=== PATIENT | female | born 1935 | race African-American/Black ===

== ENCOUNTER 2017-05-03 21:54 | Inpatient (IN) ==
[2017-05-03] MEDS ORDERED: methylPREDNISolone SOD SUC 125 MG/2 ML VIAL IV STA (22:13)
[2017-05-03] MEDS ORDERED: LEVOFLOXACIN INJ 750 MG in PREMIX 1 EACH IV STA (22:13)
[2017-05-03] MEDS ORDERED: SODIUM CHLORIDE 0.9% 1,000 ML IV STA (22:13)
--- NOTE | 2017-05-03 22:20 | Emergency Department Note ---
Arrival - Arrival Chief Complaint: Non-Specific Stated Complaint: clammy/ diaphoretic ED Nursing Triage Note: PT TO ROOM VIA [facility] STRETCHER. PT HAD PEG TUBE REPLACED THIS AM. PT IS DIAPHORETIC. COOL / CLAMMY. PT IS ASPHAGIC/ CONTRACTED. / DROOLING, NORMAL PER STAFF/ EMT. PT [id number] BS 217 Mode of Arrival: Stretcher Limitations: Altered Mental Status Source: Old Records Reviewed Time Seen by Provider: 05/03/17 22:13 - History of Present Illness HPI Narrative: This 82-year-old black female presents on referral from the [facility] where she presents with shallow respirations, marked diaphoresis, drooling, and cold extremities. The patient was seen here earlier in the day for change out of the feeding tube. Of note the patient is a DNR. She is unresponsive at this point in time even to noxious stimuli. Onset (ago): hour(s) (Patient presents 1 hour post onset of symptoms) Allergies/Adverse Reactions: Allergies Allergy/AdvReac Type Severity Reaction Status Date / Time No Known Allergies Allergy Verified 05/03/17 22:08 Home Medications: Home Medications Medication Instructions Recorded Confirmed Type Donepezil HCl 20 mg PEG DAILY 07/11/16 05/03/17 History Simvastatin [Zocor] 20 mg PEG DAILY 07/11/16 05/03/17 History Albuterol/Ipratropium Neb [Duoneb] 3 ml RESP TX RT Q6H PRN 02/04/17 02/19/17 History Clopidogrel [Plavix] 75 mg PEG DAILY 02/04/17 05/03/17 History Insulin NPH [HumuLIN N] 10 unit SUBCUT BID 02/04/17 05/03/17 History Insulin Regular, Human [NovoLIN R] 0 - 15 unit SUBCUT ACHS 02/04/17 05/03/17 History Lisinopril [Prinivil] 20 mg PEG DAILY 02/04/17 05/03/17 History Trazodone HCl 100 mg PEG BEDTIME 02/04/17 05/03/17 History cloNIDine 0.2 MG/24 HR PATCH 1 patch TRANSDERM TU 02/04/17 05/03/17 History [[id number]-4 Patch] Albuterol/Ipratropium Neb [Duoneb] 3 ml RESP TX RT Q6H PRN #0 02/12/17 Rx amLODIPine [Norvasc] 5 mg PO DAILY 05/03/17 05/03/17 History Review of System - Review of System ROS unobtainable: due to mental status Medical,Surgical,& Family Hx - Medical History Cardio: History of: Cerebrovascular Disease, Hypertension No history of: Aneurysm, Cardiac Dysrhythmia, Congenital Heart Disease, CHF, CAD, [place], Pacemaker, PVD, Valvular Heart Disease, Cardiovascular Problems Psychological: History of: Psychiatric Problems (Dementia) Neurology: History of: Cerebral Hemorrhage, Cerebrovascular Accident, Dementia No history of: Brain Aneurysm, Cerebral Palsy, Migraine, Multiple Sclerosis, Parkinson's Disease, Peripheral Neuropathy, Seizures, TIA, Vertigo, Neurologocal Cancer Endocrine: History of: Diabetes Mellitus (IDDM), Diabetes Mellitus (NIDDM), Dyslipidemia Gastrointestinal: History of: GERD, GI Problems (PEG tube) Other: No history of: Anesthesia Reactions - Surgical History Neurologic Surgeries: Surgical HX of: Cerebral Hemorrhage Patient denies: Brain Aneurysm, Neurologic Surgery HEENT Surgeries: Patient denies: Tonsilectomy & Adenoidectomy Abdominal Surgeries: Surgical HX of: EGD (peg placement) Reproductive Surgeries: Surgical HX of;: Genitourinary 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 HEENT: Normocephalic. No trauma. Moist mucous membranes. EOMI. PERRLA. ENT NML NECK: Supple. No adenopathy. CARDIAC: Regular. No murmurs. Heart rate 120 CHEST: Scattered expiratory vicky. No respiratory distress. O2 sat 84% ABDOMEN: Soft. Nontender. Hypoactive bowel sounds. Feeding tube left lower quadrant with good return EXTREMITIES: No trauma. no pedal edema. bilateral severe contractions of the legs.. SKIN: Diaphoretic with cold extremities NEURO: Unresponsive even to noxious stimuli. Vital Signs: Vital Signs Temperature 96.2 F L 05/03/17 21:58 Pulse Rate 125 H 05/03/17 23:45 Respiratory Rate 30 H 05/03/17 23:45 Blood Pressure 119/65 05/03/17 23:45 O2 Sat by Pulse Oximetry 99 05/03/17 23:45 Course - Reevaluation(s) Reevaluation #1: Discussed with family the situation and the terminality of her outcome eventually. They are comfortable with DNR status but want everything done short of that. - Consultations Consultation #1: Discussed with hospitalist service who will admit for further evaluation treatment Results - Labs CBC & BMP: 05/03/17 22:24 05/03/17 22:24 Labs: I have reviewed the lab and noted the elevated hematocrit - Impressions EKG sinus tachycardia at 111 with normal [place] interval and right ventricular conduction delay. Diffuse nonspecific ST changes. No acute injury pattern. - Diagnostic Findings Procedure: Chest x-ray: image reviewed by me, report reviewed by me (No acute disease), KUB x-ray: image reviewed by me, report reviewed by me (Feeding tube visualized, fecal stasis noted) Disposition Clinical Impression: Hypotension, Respiratory distress Case discussed with: patient's family Disposition: Still a Patient Condition: Guarded Time of Disposition: 00:18
--- NOTE | 2017-05-03 22:21 | EKG Report ---
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
[2017-05-03] MEDS ORDERED: ALBUTEROL 2.5 MG/3 ML NEB RESP TX SCH (22:30)
[2017-05-03] MEDS ORDERED: methylPREDNISolone SOD SUC 125 MG/2 ML VIAL ONE (22:43)
[2017-05-03] MEDS ORDERED: LEVOFLOXACIN INJ 150 ML IV ONE (22:43)
[2017-05-03 23:08] LABS: Basophils % 0.3 % (0.0-0.8); Eosinophils % 0.3 % (0.00-10.9); Hemoglobin 18.6 GM/DL (12.0-16.0); Immature Granulocytes % 0.5 %; Immature Granulocytes Absolute 0.02 #; Lymphocytes # 0.7 10*3/uL (1.4-4.0); Lymphocytes % 18.5 % (21.3-54.2); Mean Corpuscular HGB Conc 30.2 GM/DL (32-36); Mean Corpuscular Hemoglobin 28 PG (27-34); Mean Corpuscular Volume 93.8 FL (87-102); Mean Platelet Volume 13.2 FL (9.6-12.0); Monocytes # 0.3 10*3/uL (0.11-0.8); Monocytes % 7.3 % (1.7-12.7); Neutrophils # 2.7 10*3/uL (1.4-7.4); Neutrophils % 73.1 % (38.7-73.9); Platelet Count 185 T/CUMM (130-400); Red Blood Count 6.56 MC/CUMM (3.8-5.5); Red Cell Distribution Width 17.9 % (9.3-17.3); White Blood Count 3.7 T/CUMM (4-12)
[2017-05-03 23:17] LABS: Hematocrit 61.5 VOL% (35.7-47.0)
[2017-05-03 23:29] LABS: Alanine Aminotransferase 26 U/L (13-56); Alkaline Phosphatase 96 U/L (45-117); Aspartate Amino Transferase 29 U/L (0-37); Blood Urea Nitrogen 36 MG/DL (7-18); Calcium 11.2 MG/DL (8.5-10.1); Glucose 235 MG/DL (74-106); Osmolality,Calculated 294.4 MOS/KG (273-304); Potassium 4.6 MMOL/L (3.5-5.1); Sodium 140 MMOL/L (136-145); Total Protein 8.4 G/DL (6.4-8.3); Troponin I Only 0.021 NG/ML (0.00-0.045)
[2017-05-03 23:50] LABS: Band Neutrophils 49 % (0-10); Lymphocytes 20 % (20-55); Platelet Estimate Adequate; Segmented Neutrophils 29 % (50-85); Total Cells Counted 100
[2017-05-04] MEDS ORDERED: ALBUTEROL/IPRATROPIUM 3 ML NEB RESP TX PRN (00:51)
[2017-05-04] MEDS ORDERED: DEXTROSE 50% 25 GM/50 ML VIAL IV PRN (00:57)
[2017-05-04] MEDS ORDERED: GLUCAGON 1 MG VIAL IM PRN (00:57)
--- NOTE | 2017-05-04 01:04 | Hospitalist History & Physical ---
Assessment and Plan (1) Severe sepsis Status: Acute Assessment and plan: Patient presented to the hospital with hypothermia blood pressure was okay but did have some riders at the care home. She was tachycardic with tachypnea and acute renal failure. Patient was given a dose of levofloxacin in the emergency room I will put her on Zosyn 2.25 g IV every 8 hours and Zyvox 600 mg IV every 12 hours. She is DNR should be able to go on the general medical floor with his antibiotics. Resume home medications with appropriate modifications. Current Visit: Yes (2) Hypothermia Status: Acute Assessment and plan: This has recoup some. Continue to observe Current Visit: Yes (3) UTI (urinary tract infection) Status: Acute Assessment and plan: Check urine microbiology and urinalysis as have been sent already. Patient is to have a Arechiga catheter for evacuation of the bladder. Good strong suspicion that she is returning and may be less which is guarding her abdomen. May have also developed his acute renal failure from retentive unit to the urinary bladder. I will be giving her some IV fluids would like to come control and monitoring of urine output. This reason she will have a Arechiga catheter. Current Visit: Yes (4) Pneumonia Status: Acute Assessment and plan: There is blunting of the left costophrenic angle and loss of the left cardiac border suggesting lingular infiltrate. She had a PEG tube dislodgment at the care home for long time there is a possibility there was aspiration. Patient is bedbound could easily aspirated to the left lung depending on how positioning in bed. Antibiotics directed should cover these too. Current Visit: No (5) Dehydration Status: Acute Assessment and plan: Give the normal saline at 100 mL an hour. Monitor urine output. BMP and magnesium in the morning. Current Visit: Yes (6) Diabetes mellitus Status: Chronic Assessment and plan: Patient was using Coumadin again at home. We will give intermediate sliding scale here. Her oral intake is very diminished. Will attempt to resume Glucerna at 30 mL/h and get dietitian consultation to assist with recommendation caloric needs. Accu-Cheks every 6 hours. Check A1c and lipid panel in the morning. Current Visit: No Qualifiers: Diabetes mellitus type: type 2 History of Present Illness Chief complaint: Chills and fever History of present illness: Ms. Tyson is a 82 year old female brought to the emergency room on referral from the care home where she presents with shallow respirations market diaphoresis drooling and cold extremities. Patient was seen here area in today for change out of feeding tube that had dislodged. This was done and very after returning to the care home patient started having shaking riders. presented to the emergency room with a blood pressure 119/65 heart rate of 125 temperature 96.2degrees Fahrenheit and O2 saturation of 99%.she is a DNRand family acknowledges it at the bedside. Home Medications Medication Instructions Recorded Confirmed Type Donepezil HCl 20 mg PEG DAILY 07/11/16 05/04/17 History Simvastatin [Zocor] 20 mg PEG DAILY 07/11/16 05/04/17 History Clopidogrel [Plavix] 75 mg PEG DAILY 02/04/17 05/04/17 History Insulin NPH [HumuLIN N] 10 unit SUBCUT BID 02/04/17 05/04/17 History Insulin Regular, Human [NovoLIN R] 0 - 15 unit SUBCUT ACHS 02/04/17 05/04/17 History Lisinopril [Prinivil] 20 mg PEG DAILY 02/04/17 05/04/17 History Trazodone HCl 100 mg PEG BEDTIME 02/04/17 05/04/17 History cloNIDine 0.2 MG/24 HR PATCH 1 patch TRANSDERM TU 02/04/17 05/04/17 History [Amispsqb-OTL-5 Patch] Albuterol/Ipratropium Neb [Duoneb] 3 ml RESP TX RT Q6H PRN #0 02/12/17 Rx amLODIPine [Norvasc] 5 mg PO DAILY 05/03/17 05/04/17 History Cetirizine HCl [Cetirizine Tab] 10 mg PO DAILY 05/04/17 05/04/17 History Allergies Allergy/AdvReac Type Severity Reaction Status Date / Time No Known Allergies Allergy Verified 05/03/17 22:08 Medical,Surgical,& Family Hx - Medical History Cardio: History of: Cerebrovascular Disease, Hypertension No history of: Aneurysm, Cardiac Dysrhythmia, Congenital Heart Disease, CHF, CAD, [place], Pacemaker, PVD, Valvular Heart Disease, Cardiovascular Problems Psychological: History of: Psychiatric Problems (Dementia) Neurology: History of: Cerebral Hemorrhage, Cerebrovascular Accident, Dementia No history of: Brain Aneurysm, Cerebral Palsy, Migraine, Multiple Sclerosis, Parkinson's Disease, Peripheral Neuropathy, Seizures, TIA, Vertigo, Neurologocal Cancer Endocrine: History of: Diabetes Mellitus (IDDM), Diabetes Mellitus (NIDDM), Dyslipidemia Gastrointestinal: History of: GERD, GI Problems (PEG tube) Other: No history of: Anesthesia Reactions - Surgical History Neurologic Surgeries: Surgical HX of: Cerebral Hemorrhage Patient denies: Brain Aneurysm, Neurologic Surgery HEENT Surgeries: Patient denies: Tonsilectomy & Adenoidectomy Abdominal Surgeries: Surgical HX of: EGD (peg placement) Reproductive Surgeries: Surgical HX of;: Genitourinary 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 Patient cannot offer any information because of severe dementia and prior strokes. However information is obtained from the family members at the bedside relating to what is in the subjective border of information. She obviously had a dislodged PEG tube at the care home that is possibly that patient aspirated 2. She has abdominal discomfort and there does appear to be urinary tract infection discussion with Dr. Bonilla the emergency room physician who saw the patient. Exam - Constitutional Vitals: Period Temp Pulse Resp BP Sys/Yousif Pulse Ox Last 24 Hr 96.2 F-96.2 F 97-125 20-40 88-120/54-90 84-99 General appearance: normal weight - Head Head exam: Present: normocephalic, atraumatic - Eye Eye exam: Present: other (Patient is incommunicado cannot follow instruction) Pupils: Present: SANDI - ENT ENT exam: Present: other (Continuous drooling suggesting dyscontrol of upper respiratory secretions) - Respiratory Respiratory exam: Present: other (Bilateral rhonchi) - Cardiovascular Cardiovascular exam: Present: tachycardia, other (Sinus control) - GI/Abdominal GI/Abdominal exam: Present: other (Do not augment patient is guarding there is presence of infrequent bowel sounds) - Extremities Exam Extremities exam: Present: other (Cervical strokes with significant loss of muscle bulk especially lower extremities) - Neurological Exam Neurological exam: Present: other (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
[2017-05-04 02:18] LABS: INR 1.1; PT Patient Result 11.2 SECS; Partial Thromboplastin Time 25.7 SECS (0-40)
--- NOTE | 2017-05-04 02:51 | Event Note ---
Patient presented to Psychiatric after transfer from the emergency room with unresponsiveness now. We will cannot obtain a blood pressure. The family was talked in the emergency room and they the informed me that they do not want resuscitation. Over the now through the son was at the bedside stated that they would like to have everything done except for compression on the his CPR. This is an patient been transferred to the medical ICU will start will start Levophed on how. Hopefully can get a bit IV. Currently on IV fluids change with normal saline. Replace Zyvox with vancomycin. She will also receive 240 mg single dose of gentamicin overnight.
[2017-05-04] MEDS ORDERED: LINEZOLID INJ 600 MG in PREMIX 1 EACH IV SCH (03:00)
[2017-05-04] MEDS ORDERED: VANCOMYCIN INJ 1,000 MG in SODIUM CHLORIDE 0.9% 250 ML IV ONE ×2 (03:00→03:30)
[2017-05-04] MEDS ORDERED: GENTAMICIN INJ 240 MG in SODIUM CHLORIDE 0.9% 100 ML IV STA (03:14)
--- NOTE | 2017-05-04 03:52 | Event Note ---
Putting in the right inguinal central line: After transferring her to the intensive care unit, patient was put in supine position in bed. The right inguinal place was prepped. Face trial drawn. We ended up in the artery. We withdrew the line and put some pressure in the inguinal area. Tried again nothing happened." Femoral possible strong. Patient was applied to the groin again. By the time the process of about his blood pressure was 105/77. Patient was receiving normal saline IV change rate. At this point is to continue IV fluids at 100 mL/h after the first needle is gone in. Content systolic pressures above 65 mmHg. Biopsy should be started immediately with gentamicin first 240 mg 1 is going to receive Zosyn 2.25 g IV every 8 and subsequently vancomycin 1 g every 24 hours patient we will be followed by hospital medicine. Diagnosis severe sepsis associated with both pneumonia and urinary tract infection. Patient is DNR but family would like a medical management to continue.
[2017-05-04] MEDS: PIPERACILLIN/TAZOBACTAM 3,375 MG in SODIUM CHLORIDE 0.9% 100 ML IV SCH ×2 (04:12→16:27)
[2017-05-04] MEDS: DEXTROSE 5% NACL 0.9% 1,000 ML IV SCH ×3 (05:11→19:10)
--- NOTE | 2017-05-04 06:27 | XRay Report ---
Portable chest Date: 05/03/2017 Clinical history: Shortness of breath Comparison: 02/06/2017 Technique: Portable AP sitting chest Findings: Stable cardiomegaly with uncoiling of the aorta. Progressive atelectasis/infiltration at the lung bases. Smaller pleural effusion. Stable mediastinum and osseous structures. Impression: Progressive bibasilar atelectasis/infiltration with small left pleural effusion. PROCEDURE INTERPRETED AT [facility] DEPARTMENT OF RADIOLOGY Final Report Signed by: Dr. Carolyne Lynch
--- NOTE | 2017-05-04 06:30 | XRay Report ---
Exam: XR KUB Date: 05/03/2017 10:16 PM Comparison: None Indication: Tube placement Technique:[Portable supine abdomen] Findings: Nonobstructed bowel gas pattern. Scattered fecal material in the colon. PEG tube projecting in the left abdomen. Nonspecific calcifications in the abdomen and pelvis. Minimal levoscoliosis with osteopenia and degenerative changes. Impression: PEG tube projecting in the left abdomen. It is difficult to determine the exact location without contrast. Nonspecific calcifications in the abdomen and pelvis. Nonobstructed bowel gas pattern with increased fecal material. PROCEDURE INTERPRETED AT [facility] DEPARTMENT OF RADIOLOGY Final Report Signed by: Dr. Carolyne Lynch
--- NOTE | 2017-05-04 07:54 | EKG Report ---
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
[2017-05-04] MEDS ORDERED: SODIUM CHLORIDE 0.9% 1,000 ML IV ONE (08:44)
[2017-05-04] MEDS ORDERED: amLODIPine 5 MG TABLET PO SCH (09:00)
[2017-05-04] MEDS ORDERED: cloNIDine 0.2 MG/24 HR PATCH TRANSDERM SCH (09:00)
[2017-05-04] MEDS ORDERED: LISINOPRIL 20 MG TABLET PEG SCH (09:00)
[2017-05-04] MEDS: CLOPIDOGREL 75 MG TABLET PEG SCH (09:54)
[2017-05-04] MEDS: SIMVASTATIN 20 MG TABLET PEG SCH (09:54)
--- NOTE | 2017-05-04 10:59 | Fluoroscopy Report ---
Exam: FL feeding tube Date: 05/04/2017 12:00 AM Comparison: 05/03/2017 Indication: PEG tube placement Technique:[Portable KUB with films obtained before and after the injection of contrast. 3 films were obtained.] Findings: PEG tube projecting in the abdomen just to the right of midline on the initial film. Nasogastric tube in the stomach. 60 cc of dilute Gastrografin injected. Pooling of some of the contrast around the tube with leakage into the peritoneal cavity. No significant contrast identified in the stomach. Nonspecific calcifications in the abdomen and pelvis with degenerative changes. Impression: The PEG tube does not project in the stomach and should be repositioned. Free spillage of contrast into the peritoneal cavity as discussed with Dr. Sneed at 10:25 AM on 05/04/2017. Critical test results. PROCEDURE INTERPRETED AT [facility] DEPARTMENT OF RADIOLOGY Final Report Signed by: Dr. Carolyne Lynch
--- NOTE | 2017-05-04 11:05 | Gastrointestinal Consult Note ---
Assessment and Plan (1) PEG (percutaneous endoscopic gastrostomy) status Status: Acute Assessment and plan: 05/04-Admitted with sepsis, post PEG tube replacement on yesterday. Findings of fluroscopy of PEG not projecting into stomach, free spillage of contrast into peritoneal cavity. Tube feedings held. Plan and addendum to follow by Dr Brown. Current Visit: No History of Present Illness Chief complaint: Sepsis, PEG tube malposition History of present illness: Ms. Tyson is a 82 year old female who was admitted to the hospital overnight with reports of chills and fever. Patient is unable to provide history due to being nonverbal therefore information is obtained from nursing staff and chart review. Patient has a history of CVA on anticoagulant therapy (Plavix), dementia, diabetes, dyslipidemia, and GERD. Patient is a resident in a [facility] and she was at our facility as outpatient on yesterday to have her PEG tube replaced. PEG tube replaced and she was discharged back to the facility without any complications at that time. Last night patient was found by [facility] staff to have shaking rigors and was noted to be slightly hypothermic with a temperature of 96 and a heart rate of 125. She was brought in for further evaluation and she was found at that time to have acute renal failure and IV antibiotics were initiated. She was also found to have some progressive bibasilar atelectasis with infiltration and small left pleural effusion. Upon further evaluation patient had evaluation under fluoroscopy and was found the PEG tube not projecting in the stomach with free spillage of contrast in the peritoneal cavity. Tube feedings have been held at this time. WBCs on admission noted at 3.7. Temperature is improved at 98.1 and patient mildly tachycardic with continued tachypnea. Blood pressure noted to be improving since admission with mild hypotension. Unable to determine by [facility] records the amount of tube feedings given on yesterday after return from PEG tube replacement. Home Medications Medication Instructions Recorded Confirmed Type Donepezil HCl 20 mg PEG DAILY 07/11/16 05/04/17 History Simvastatin [Zocor] 20 mg PEG DAILY 07/11/16 05/04/17 History Clopidogrel [Plavix] 75 mg PEG DAILY 02/04/17 05/04/17 History Insulin NPH [HumuLIN N] 10 unit SUBCUT BID 02/04/17 05/04/17 History Insulin Regular, Human [NovoLIN R] 0 - 15 unit SUBCUT ACHS 02/04/17 05/04/17 History Lisinopril [Prinivil] 20 mg PEG DAILY 02/04/17 05/04/17 History Trazodone HCl 100 mg PEG BEDTIME 02/04/17 05/04/17 History cloNIDine 0.2 MG/24 HR PATCH 1 patch TRANSDERM TU 02/04/17 05/04/17 History [[id number]-6 Patch] Albuterol/Ipratropium Neb [Duoneb] 3 ml RESP TX RT Q6H PRN #0 02/12/17 Rx amLODIPine [Norvasc] 5 mg PO DAILY 05/03/17 05/04/17 History Cetirizine HCl [Cetirizine Tab] 10 mg PO DAILY 05/04/17 05/04/17 History Allergies Allergy/AdvReac Type Severity Reaction Status Date / Time No Known Allergies Allergy Verified 05/03/17 22:08 Medical,Surgical,& Family Hx - Medical History Cardio: History of: Cerebrovascular Disease, Hypertension No history of: Aneurysm, Cardiac Dysrhythmia, Congenital Heart Disease, CHF, CAD, [place], Pacemaker, PVD, Valvular Heart Disease, Cardiovascular Problems Psychological: History of: Psychiatric Problems (Dementia) Neurology: History of: Cerebral Hemorrhage, Cerebrovascular Accident, Dementia No history of: Brain Aneurysm, Cerebral Palsy, Migraine, Multiple Sclerosis, Parkinson's Disease, Peripheral Neuropathy, Seizures, TIA, Vertigo, Neurologocal Cancer Endocrine: History of: Diabetes Mellitus (IDDM), Diabetes Mellitus (NIDDM), Dyslipidemia Gastrointestinal: History of: GERD, GI Problems (PEG tube) Other: No history of: Anesthesia Reactions - Surgical History Neurologic Surgeries: Surgical HX of: Cerebral Hemorrhage Patient denies: Brain Aneurysm, Neurologic Surgery HEENT Surgeries: Patient denies: Tonsilectomy & Adenoidectomy Abdominal Surgeries: Surgical HX of: EGD (peg placement) Reproductive Surgeries: Surgical HX of;: Genitourinary 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), Hysterectomy - Family History Family History: Reports;: Family Cancer (son-colon), Family Diabetes (daughters) , Family Heart Disease (mother), Family Hypertension (all six children), Family Stroke (daugher) Denies;: Family Anesthesia Reaction - Social History Smoking Status: Unknown if ever smoked Frequency of Alcohol Use: Unknown Type of Drug Use: Unknown ROS unobtainable: due to mental status Exam - Constitutional Vitals: Period Temp Pulse Resp BP Sys/Yousif Pulse Ox Last 24 Hr 93 F-98.6 F 92-125 20-40 70-120/40-90 84-99 General appearance: normal weight, no acute distress - Head Head exam: Present: normal inspection, normocephalic - Eye Eye exam: Present: other (lids and conjunctiva unremarkable). Absent: scleral icterus - ENT ENT exam: Present: normal exam, normal oropharynx - Neck Neck exam: Present: normal inspection - Respiratory Respiratory exam: Present: clear to auscultation bilaterally. Absent: rales, rhonchi, wheezes - Cardiovascular Cardiovascular exam: Present: regular rate and rhythm. Absent: diastolic murmur , JVD, systolic murmur - GI/Abdominal GI/Abdominal exam: Present: normal bowel sounds, soft. Absent: ascites, distended, mass, organomegaly, tenderness - Extremities Exam Extremities exam: Present: normal inspection, full ROM - Back Exam Back exam: Present: normal inspection - Neurological Exam Neurological exam: Present: alert, altered - Psychiatric Psychiatric exam: Present: normal affect, normal mood - Skin Skin exam: Present: normal color, warm, dry Results - Labs CBC & BMP: 05/03/17 22:24 05/03/17 22:24 Lab Results: I have reviewed the past 24 hour labs - Diagnostic Findings Procedure: Abdominal x-ray: report reviewed by me, X-ray: report reviewed by me (amanda)
--- NOTE | 2017-05-04 11:52 | ECHO Report ---
Ann Tyson 05/04/2017 Exam Date: 09:02 Referring Physician: Eugenia Oscar Technologist: ESPERANZA Age: 82 Ht (in): 65 Wt (lb): 150 FExam Location: [facility] Gender: Echo [id number]: sinus tachycardia, Hx. CVA, HTN, diIndications:abetes, dehydration, severe sepsis, hypothermia, UTI, pneumonia BP: 101 / 68 HR: 98 sinus tachycardiaRhythm: Technically difficult studyTechnical Quality: IMPRESSIONS Technically difficult study Normal chamber sizes, although LV appears to be underfilled and hyperdynamic 2+ concentric LVH At least normal LV systolic function with ejection fraction estimated 50-70% Aortic sclerosis without stenosis Probable 1+ tricuspid regurgitation with RVSP 20 mmHg plus RAP MEASUREMENTS (Male / Female) Normal Values 2D ECHO LV Diastolic Diameter PLAX 3.2 cm 4.2 - 5.9 / 3.9 - 5.3 cm LV Systolic Diameter PLAX 2.7 cm LV Fractional Shortening PLAX 15.2 % IVS Diastolic Thickness 1.4 cm 0.6 - 1.0 / 0.6 - 0.9 cm LVPW Diastolic Thickness 1.4 cm 0.6 - 1.0 / 0.6 - 0.9 cm RV Internal Dim ED PLAX 2.3 cm Aortic Root Diameter 2.6 cm LA Systolic Diameter LX 2.7 cm 3.0 - 4.0 / 2.7 - 3.8 cm DOPPLER TR Peak Velocity 224.0 cm/s TR Peak Gradient 20.1 mmHg FINDINGS Left Ventricle Moderately increased septal wall thickness. Moderately increased posterior wall thickness. Moderate concentric left ventricular hypertrophy with diastolic dysfunction. Left ventricular ejection fraction is estimated at Right Ventricle Normal right ventricular size. Right Atrium Normal right atrial size. Left Atrium Normal left atrial size. Mitral Valve Mild mitral valve sclerosis. Aortic Valve Mild aortic valve sclerosis. Tricuspid Valve Morphologically normal tricuspid valve. [id number] tricuspid valve regurgitation. Tricuspid regurgitation velocities suggest a PAP of 30 mmHg. Pulmonic Valve Pulmonic valve not well visualized. Pericardium Trivial pericardial effusion. Aorta Normal size aortic root and proximal ascending aorta. Mathew Alcala (Electronically Signed) 04 May 2017 Final Date: 11:50
--- NOTE | 2017-05-04 11:54 | General Surgery Consult Note ---
Assessment and Plan (1) Severe sepsis Status: Acute Assessment and plan: Impression: Probable gastric perforation Plan: Patient is likely septic from abdominal source. Plan for exploratory laparotomy. I discussed the procedure has performed with the patient's daughter over the telephone. Risk of the procedure including bleeding, infection, damage to surrounding structures, need for further surgery were all discussed in detail and she gives her permission to proceed. Daughter understands we will place a DNR status on hold during the operation. Current Visit: Yes History of Present Illness Chief complaint: Sepsis History of present illness: Ms. Tyson is a 82 year old female underwent PEG tube replacement yesterday and returned with sepsis. She had an acute abdomen. I have been consulted to help with this. The patient has a standing DNR status. She is fdc patient who required the PEG tube for feeding. Contrast study shows the tube out of position with contrast leaking freely into the abdominal cavity. Home Medications Medication Instructions Recorded Confirmed Type Donepezil HCl 20 mg PEG DAILY 07/11/16 05/04/17 History Simvastatin [Zocor] 20 mg PEG DAILY 07/11/16 05/04/17 History Clopidogrel [Plavix] 75 mg PEG DAILY 02/04/17 05/04/17 History Insulin NPH [HumuLIN N] 10 unit SUBCUT BID 02/04/17 05/04/17 History Insulin Regular, Human [NovoLIN R] 0 - 15 unit SUBCUT ACHS 02/04/17 05/04/17 History Lisinopril [Prinivil] 20 mg PEG DAILY 02/04/17 05/04/17 History Trazodone HCl 100 mg PEG BEDTIME 02/04/17 05/04/17 History cloNIDine 0.2 MG/24 HR PATCH 1 patch TRANSDERM TU 02/04/17 05/04/17 History [Apnkmoya-YIU-4 Patch] Albuterol/Ipratropium Neb [Duoneb] 3 ml RESP TX RT Q6H PRN #0 02/12/17 Rx amLODIPine [Norvasc] 5 mg PO DAILY 05/03/17 05/04/17 History Cetirizine HCl [Cetirizine Tab] 10 mg PO DAILY 05/04/17 05/04/17 History Allergies Allergy/AdvReac Type Severity Reaction Status Date / Time No Known Allergies Allergy Verified 05/03/17 22:08 Medical,Surgical,& Family Hx - Medical History Cardio: History of: Cerebrovascular Disease, Hypertension No history of: Aneurysm, Cardiac Dysrhythmia, Congenital Heart Disease, CHF, CAD, ID, Pacemaker, PVD, Valvular Heart Disease, Cardiovascular Problems Psychological: History of: Psychiatric Problems (Dementia) Neurology: History of: Cerebral Hemorrhage, Cerebrovascular Accident, Dementia No history of: Brain Aneurysm, Cerebral Palsy, Migraine, Multiple Sclerosis, Parkinson's Disease, Peripheral Neuropathy, Seizures, TIA, Vertigo, Neurologocal Cancer Endocrine: History of: Diabetes Mellitus (IDDM), Diabetes Mellitus (NIDDM), Dyslipidemia Gastrointestinal: History of: GERD, GI Problems (PEG tube) Other: No history of: Anesthesia Reactions - Surgical History Neurologic Surgeries: Surgical HX of: Cerebral Hemorrhage Patient denies: Brain Aneurysm, Neurologic Surgery HEENT Surgeries: Patient denies: Tonsilectomy & Adenoidectomy Abdominal Surgeries: Surgical HX of: EGD (peg placement) Reproductive Surgeries: Surgical HX of;: Genitourinary 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), Hysterectomy - Family History Family History: Reports;: Family Cancer (son-colon), Family Diabetes (daughters) , Family Heart Disease (mother), Family Hypertension (all six children), Family Stroke (daugher) Denies;: Family Anesthesia Reaction - Social History Smoking Status: Unknown if ever smoked Frequency of Alcohol Use: Unknown Type of Drug Use: Unknown ROS unobtainable: due to mental status Exam - Constitutional Vitals: Period Temp Pulse Resp BP Sys/Yousif Pulse Ox Last 24 Hr 93 F-98.6 F 92-125 20-40 70-120/40-90 84-99 General appearance: no acute distress - Cardiovascular Cardiovascular exam: Present: tachycardia - GI/Abdominal GI/Abdominal exam: Present: firm (Abdomen is firm and she appears to be very tender globally with peritonitis.) - Neurological Exam Neurological exam: Present: alert Results - Labs CBC & BMP: 05/03/17 22:24 05/03/17 22:24 Lab Results: I have reviewed the past 24 hour labs
[2017-05-04] MEDS ORDERED: CALCIUM CHLORIDE 1,000 MG/10 ML VIAL IV ONE (11:58)
[2017-05-04] MEDS ORDERED: ROCURONIUM 100 MG/10 ML VIAL IV ONE (11:58)
[2017-05-04] MEDS ORDERED: EPINEPHrine 1 MG/10 ML SYRINGE ONE (11:58)
[2017-05-04] MEDS ORDERED: ETOMIDATE 20 MG/10 ML VIAL IV ONE (11:58)
[2017-05-04] MEDS ORDERED: PHENYLEPHRINE 50 MG/5 ML VIAL ONE (11:58)
[2017-05-04] MEDS ORDERED: LIDOCAINE 2% 5 ML VIAL ONE (11:58)
[2017-05-04] MEDS ORDERED: PHENYLEPHRINE 1 MG/10 ML SYRINGE IV ONE (11:58)
--- NOTE | 2017-05-04 12:54 | Hospitalist Progress Note ---
Assessment and Plan (1) Acute abdomen Status: Acute Assessment and plan: 1)acute abdomen after PEG reinsertion- under fluoro, contrast extravasated out of stomach. Dr Watts to explore at surgery now. 2)sepsis- on Zosyn and Vanc and a single dose of gent. She received volume on admission and has not required pressors. She is breathing on her own. UOP slowed but on IVF. reasses after surgery. She had some pyuria and mild infiltrates on CXR also, antibiotics geared to cover infection at those sites too. She had some dark vomitus this morning also. Consider potential for aspiration. Repeat CXR in am. Labs in am. 3)hypothermia- improved after admission 4)DM- Use SSI prn. 5)HTN- will hold antiHTN meds today. Current Visit: Yes (2) Pneumonia Status: Acute Current Visit: No (3) Atrial flutter Status: Acute Current Visit: No (4) Dementia Status: Chronic Current Visit: No (5) Severe sepsis Status: Acute Current Visit: Yes (6) UTI (urinary tract infection) Status: Acute Current Visit: Yes Hospitalist: Subjective Interval history: Ms Watters was admitted overnight with sepsis after a PEG tube replacement (a chronic PEG came out at the [place], and Dr Brown replaced it yesterday). She returned to [facility] but then came back with sepsis. She is on Zosyn and vanc. This morning her abdomen was firm and tender and with no bowel sounds. The focus of sepsis was not established and I was concerned it could have arisen from the new PEG tube. I discussed best test with Dr Lynch and also Dr Brown. She had a KUB after contrast through the PEG and Dr Lynch called me to say it was extravasated outside the stomach. I called Dr Watts to consult and he has now taken her to the OR. Dr Brown will also see her. In addition I talked to her daughter and granddaughter to explain the situation. She is DNR as she has been at the retirement. Exam - Constitutional Vitals: Period Temp Pulse Resp BP Sys/Yousif Pulse Ox Last 24 Hr 93 F-98.6 F 92-125 20-40 70-120/40-90 84-99 General appearance: mild distress, under weight - Eye Eye exam: Present: EOMI. Absent: scleral icterus - Respiratory Respiratory exam: Present: rales (at bases). Absent: rhonchi, wheezes - Cardiovascular Cardiovascular exam: Present: regular rate and rhythm - GI/Abdominal GI/Abdominal exam: Present: firm, hypoactive bowel sounds, tenderness - Extremities Exam Extremities exam: Absent: edema - Neurological Exam Neurological exam: Present: other (her baseline function is not established, but I don't think she talks at baseline. She lives at the [place]. She is not talking but she does open eyes to voice. ) - Skin Skin exam: Present: warm, dry Results - Labs CBC & BMP: 05/03/17 22:24 05/03/17 22:24 Lab Results: I have reviewed the past 24 hour labs
[2017-05-04 14:10] LABS: Amorphous Crystals,Urine Occasional /HPF (Few); Apearance,Urine CLOUDY (Clear); Bilirubin,Urine Negative (Negative); Blood, Urine Moderate mg/dL (Negative); Glucose,Urine (UA) 50 mg/dL (Negative); Ketones,Urine Negative (Negative); Mucus,Urine Occasional /LPF (Occasional); Nitrite,Urine Negative (Negative); Protein,Urine 100 MG/DL; Squamous Epithelial Cell,Urine Occasional /HPF (0-10); Urine Specific Gravity 1.026 (1.001-1.035); Urine Urobilinogen < 2.0 EU/DL (0.2-1.0); WBC,Urine 6 /HPF (0-6)
[2017-05-04 14:11] LABS: Urine Color Yellow (Yellow)
[2017-05-04] MEDS ORDERED: MIDAZOLAM 2 MG/2 ML VIAL ONE ×2 (14:13→14:14)
[2017-05-04] MEDS ORDERED: SEVOFLURANE 1 UNIT/15 MINUTE INH ONE (14:13)
[2017-05-04] MEDS ORDERED: SODIUM CHLORIDE 0.9% 200 ML IV ONE (14:15)
[2017-05-04] MEDS ORDERED: fentaNYL 100 MCG/2 ML VIAL ONE (14:15)
[2017-05-04] MEDS ORDERED: LACTATED RINGERS 2,000 ML IV ONE (14:15)
[2017-05-04] MEDS ORDERED: SODIUM CHLORIDE 0.9% 250 ML IV ONE (14:15)
[2017-05-04 14:19] LABS: ABG Base Excess -12.3 MMOL/L (-2.5-2.5); ABG HCO3 14.9 MMOL/L (20-26); ABG Oxygen Saturation 95.6 % (95-100); ABG PCO2 31.5 MM HG (35-48); ABG PH 7.255 (7.35-7.45); ABG PO2 84.7 MM HG (80-95); ABG TCO2 12.6 MMOL/L (23-27)
[2017-05-04 14:22] LABS: Basophils % 0.2 % (0.0-0.8); Hematocrit 37.2 VOL% (35.7-47.0); Hemoglobin 12.1 GM/DL (12.0-16.0); Immature Granulocytes % 1.2 %; Immature Granulocytes Absolute 0.06 #; Lymphocytes # 0.6 10*3/uL (1.4-4.0); Lymphocytes % 11.8 % (21.3-54.2); Mean Corpuscular HGB Conc 32.5 GM/DL (32-36); Mean Corpuscular Hemoglobin 29 PG (27-34); Mean Corpuscular Volume 90.1 FL (87-102); Mean Platelet Volume 13.4 FL (9.6-12.0); Monocytes # 0.4 10*3/uL (0.11-0.8); Monocytes % 7.3 % (1.7-12.7); NRBC # 0.03 10*3/uL; Neutrophils % 79.5 % (38.7-73.9); Platelet Count 112 T/CUMM (130-400); Red Blood Count 4.13 MC/CUMM (3.8-5.5); Red Cell Distribution Width 16.5 % (9.3-17.3); White Blood Count 5.1 T/CUMM (4-12)
--- NOTE | 2017-05-04 14:27 | XRay Report ---
Portable chest Date: 05/04/2017 Clinical history: Intubation Comparison: 05/03/2017 Technique: Portable AP sitting chest Findings: The heart remains enlarged with uncoiling of the aorta. The endotracheal tube is in satisfactory position above the level of the robbie. Nasogastric tube in satisfactory position in the stomach. Progressive parenchymal findings at the lung bases with small pleural effusions. Osteopenia with degenerative changes. Impression: The endotracheal tube and nasogastric tube are in satisfactory position. Progressive bibasilar atelectasis/infiltration with small pleural effusions. PROCEDURE INTERPRETED AT [facility] DEPARTMENT OF RADIOLOGY Final Report Signed by: Dr. Carolyne Lynch
[2017-05-04 14:49] LABS: Band Neutrophils 15 % (0-10); Lymphocytes 24 % (20-55); Metamyelocytes 4 %; Platelet Estimate Decreased; Segmented Neutrophils 51 % (50-85); Total Cells Counted 100
[2017-05-04 14:54] LABS: Calcium 8.3 MG/DL (8.5-10.1); Osmolality,Calculated 311.4 MOS/KG (273-304); Potassium 4.5 MMOL/L (3.5-5.1)
[2017-05-04] MEDS: NOREPINEPHRINE 8 MG in SODIUM CHLORIDE 0.9% 242 ML IV SCH (15:02)
--- NOTE | 2017-05-04 15:10 | Operative Note ---
Date of procedure: 05/04/17 Pre-op diagnosis: Peritonitis, gastric perforation Post-op diagnosis: same Procedure: Procedure performed: Ex lap with partial gastrectomy Procedure in detail: After informed consent was obtained by the patient's daughter, the patient was taken to the operative suite. Her NG tube was placed to suction and an art line was started. Upon induction of anesthesia she began to vomit and contents were noted coming up through the ET tube. These were suctioned. The patient then became hypotensive. Pressors were given. She then stabilized. The abdomen was prepped and draped in usual sterile fashion. Upper midline laparotomy incision was made after procedural pause and dissection carried down through the soft tissue. The fascia was opened and the abdominal cavity was entered. There was a lot of tube feeds throughout the entire abdominal cavity which were suctioned. The G-tube site on the inside of the abdomen was examined and there was a hole where the stomach was stuck to the anterior abdominal wall with the tube coming out of it. The tube was removed. I then extended the incision slightly inferior and incorporated the G- tube tract and divided it away from the fascia left it in place with the stomach. I then transected the antrum using a DANIELLE stapling device with a blue load removing the portion of stomach containing the G-tube tract and perforation. Staple line was complete and the lumen remained widely patent. The abdomen was then thoroughly irrigated and suctioned. The irrigant remained clear. There was excellent hemostasis. NG tube confirmed in the stomach. The midline fascia was reapproximated with #1 running looped PDS. The wound was irrigated and suctioned. Incision closed with sakina. Sterile dressings applied. The patient was left intubated and taken back to the ICU in critical condition. Anesthesia: GETA Surgeon / Physician: Dayne Watts Estimated blood loss: other (Less than 10 cc) Specimens: other (Portion of stomach) Condition: critical Disposition: ICU Results - Labs CBC & BMP: 05/04/17 14:10 05/03/17 22:24 Discharge Plan - Discharge Medications No Action Donepezil HCl 20 mg PEG DAILY Simvastatin [Zocor] 20 mg PEG DAILY Insulin NPH [HumuLIN N] 10 unit SUBCUT BID Clopidogrel [Plavix] 75 mg PEG DAILY cloNIDine 0.2 MG/24 HR PATCH [Qpuzjsmh-KVE-3 Patch] 1 patch TRANSDERM TU Trazodone HCl 100 mg PEG BEDTIME Albuterol/Ipratropium Neb [Duoneb] 3 ml RESP TX RT Q6H PRN #0 PRN Reason: Shortness Of Breath/Wheezing Cetirizine HCl [Cetirizine Tab] 10 mg PO DAILY Lisinopril [Prinivil] 20 mg PEG DAILY Insulin Regular, Human [NovoLIN R] 0 - 15 unit SUBCUT ACHS amLODIPine [Norvasc] 5 mg PO DAILY - Follow Up or Referral - Forms/Instructions
[2017-05-04] MEDS ORDERED: LACTATED RINGERS 1,000 ML IV ONE (16:03)
--- NOTE | 2017-05-04 16:57 | Pulmonology Consult Note ---
Assessment and Plan (1) Respiratory failure following trauma and surgery Status: Acute Assessment and plan: Patient is on the ventilator following laparotomy. She had vomiting and may well have aspirated. She had a her PEG tube draining feeding solution into the peritoneum. It is been removed and this is been placed under drainage. ABG show metabolic acidosis. Will step up mechanical ventilation a little. She is getting some bicarb. Her prognosis is poor. Current Visit: Yes (2) Severe sepsis Status: Acute Assessment and plan: Broad-spectrum antibiotics. Fluid resuscitation. Blood pressure stable at present. She still has some metabolic acidosis. creatinine is risen to 2.0 Current Visit: Yes (3) Acute abdomen Status: Acute Assessment and plan: Status post laparotomy. PEG tube had dislodged from the stomach Current Visit: Yes (4) Dementia Status: Chronic Assessment and plan: Patient had underlying dementia and previous stroke. Family will make a decision in a day or 2 as far as how long to support her. Current Visit: No History of Present Illness Chief complaint: Gastric perforation History of present illness: Ms. Tyson is a 82 year old female who came from a senior care. She had evidence of sepsis air in her abdomen. She was taken to surgery and found to have a PEG tube that had dislodged from the stomach with pink feedings in the peritoneum. Partial gastric resection was done. She is presently on the ventilator. She had previously been a DNR. That was revoked for her surgery. She had a previous stroke hypertension dementia cerebral hemorrhage diabetes gastroesophageal reflux disease. She has had neurologic surgery for cerebral hemorrhage. Home Medications Medication Instructions Recorded Confirmed Type Donepezil HCl 20 mg PEG DAILY 07/11/16 05/04/17 History Simvastatin [Zocor] 20 mg PEG DAILY 07/11/16 05/04/17 History Clopidogrel [Plavix] 75 mg PEG DAILY 02/04/17 05/04/17 History Insulin NPH [HumuLIN N] 10 unit SUBCUT BID 02/04/17 05/04/17 History Insulin Regular, Human [NovoLIN R] 0 - 15 unit SUBCUT ACHS 02/04/17 05/04/17 History Lisinopril [Prinivil] 20 mg PEG DAILY 02/04/17 05/04/17 History Trazodone HCl 100 mg PEG BEDTIME 02/04/17 05/04/17 History cloNIDine 0.2 MG/24 HR PATCH 1 patch TRANSDERM TU 02/04/17 05/04/17 History [Xtpbsmug-FPO-6 Patch] Albuterol/Ipratropium Neb [Duoneb] 3 ml RESP TX RT Q6H PRN #0 02/12/17 Rx amLODIPine [Norvasc] 5 mg PO DAILY 05/03/17 05/04/17 History Cetirizine HCl [Cetirizine Tab] 10 mg PO DAILY 05/04/17 05/04/17 History Allergies Allergy/AdvReac Type Severity Reaction Status Date / Time No Known Allergies Allergy Verified 05/03/17 22:08 ROS unobtainable: due to endotracheal tube Exam (Pulmonay) H&P - Constitutional Vitals: Period Temp Pulse Resp BP Sys/Yousif Pulse Ox Last 24 Hr 93 F-98.6 F 92-125 8-40 70-120/40-90 84-99 Exam: Vital signs are normal. Eyes are prominent pupils small and she has arcus senilis. Orotracheal tube in place. She has an NG tube in place. Neck is supple no bruits. Chest reveals some scattered rhonchi. Heart normal rate rhythm no murmurs. Abdomen soft somewhat distended. No bowel sounds. Bandage over midline abdomen. Extremities no clubbing cyanosis or edema. Medical,Surgical,& Family Hx - Medical History Cardio: History of: Cerebrovascular Disease, Hypertension No history of: Aneurysm, Cardiac Dysrhythmia, Congenital Heart Disease, CHF, CAD, NM, Pacemaker, PVD, Valvular Heart Disease, Cardiovascular Problems Psychological: History of: Psychiatric Problems (Dementia) Neurology: History of: Cerebral Hemorrhage, Cerebrovascular Accident, Dementia No history of: Brain Aneurysm, Cerebral Palsy, Migraine, Multiple Sclerosis, Parkinson's Disease, Peripheral Neuropathy, Seizures, TIA, Vertigo, Neurologocal Cancer Endocrine: History of: Diabetes Mellitus (IDDM), Diabetes Mellitus (NIDDM), Dyslipidemia Gastrointestinal: History of: GERD, GI Problems (PEG tube) Other: No history of: Anesthesia Reactions - Surgical History Neurologic Surgeries: Surgical HX of: Cerebral Hemorrhage Patient denies: Brain Aneurysm, Neurologic Surgery HEENT Surgeries: Patient denies: Tonsilectomy & Adenoidectomy Abdominal Surgeries: Surgical HX of: EGD (peg placement) Reproductive Surgeries: Surgical HX of;: Genitourinary 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 Right diaphragm slightly elevated. Patchy infiltrates bilateral.)
--- NOTE | 2017-05-04 17:57 | Event Note ---
pt is now postop ex lap w partial gastrectomy due to perforation and peritonitis by dr muhammad. pt vomited upon induction of anesthesia, she became hypotensive and pressors were started. she also had tube feeds in her peritoneum. pt actually seems to be doing ok. she will open her eyes. she is off pressors and just received a bolus of fluid. her VSS are stable. will cont to monitor. dr jackson from pulmonary has also seen pt. appreciate the consultants help. discussed w dr day.
[2017-05-04] MEDS: INSULIN LISPRO 100 UNIT/ML SUBCUT SCH (18:38)
[2017-05-05] MEDS: PIPERACILLIN/TAZOBACTAM 3,375 MG in SODIUM CHLORIDE 0.9% 100 ML IV SCH ×3 (00:28→20:22)
[2017-05-05] MEDS: INSULIN LISPRO 100 UNIT/ML SUBCUT SCH ×5 (00:28→23:19)
[2017-05-05] MEDS: NOREPINEPHRINE 8 MG in SODIUM CHLORIDE 0.9% 242 ML IV SCH ×2 (02:23→04:39)
[2017-05-05 03:52] LABS: ABG Base Excess -11.1 MMOL/L (-2.5-2.5); ABG HCO3 15.7 MMOL/L (20-26); ABG PCO2 22.5 MM HG (35-48); ABG PH 7.362 (7.35-7.45); ABG TCO2 11.4 MMOL/L (23-27)
[2017-05-05 03:55] LABS: Basophils % 0.2 % (0.0-0.8); Hematocrit 38.2 VOL% (35.7-47.0); Hemoglobin 12.5 GM/DL (12.0-16.0); Immature Granulocytes % 1.1 %; Lymphocytes # 0.6 10*3/uL (1.4-4.0); Lymphocytes % 6.7 % (21.3-54.2); Mean Corpuscular HGB Conc 32.7 GM/DL (32-36); Mean Corpuscular Hemoglobin 29 PG (27-34); Mean Corpuscular Volume 88.6 FL (87-102); Mean Platelet Volume 13.1 FL (9.6-12.0); Monocytes # 0.5 10*3/uL (0.11-0.8); Monocytes % 5.6 % (1.7-12.7); Neutrophils # 7.8 10*3/uL (1.4-7.4); Neutrophils % 86.4 % (38.7-73.9); Platelet Count 117 T/CUMM (130-400); Red Blood Count 4.31 MC/CUMM (3.8-5.5); Red Cell Distribution Width 16.6 % (9.3-17.3); White Blood Count 9.1 T/CUMM (4-12)
[2017-05-05 04:12] LABS: INR 1.6; PT Patient Result 17.3 SECS
[2017-05-05 04:15] LABS: Albumin 2.2 G/DL (3.4-5.0); Bilirubin,Total 1.5 MG/DL (0.2-1.0); Calcium 8.3 MG/DL (8.5-10.1); Magnesium 1.9 MG/DL (1.8-2.4); Osmolality,Calculated 311.4 MOS/KG (273-304); Potassium 5.4 MMOL/L (3.5-5.1); Total Protein 4.4 G/DL (6.4-8.3)
[2017-05-05 04:24] LABS: Anisocytosis 1+
[2017-05-05 04:25] LABS: Platelet Estimate Adequate
[2017-05-05] MEDS: DEXTROSE 5% NACL 0.9% 1,000 ML IV SCH ×2 (05:16→18:58)
[2017-05-05] MEDS: HYDROmorphone 2 MG/1 ML VIAL IM PRN ×3 (05:42→21:11)
[2017-05-05] MEDS ORDERED: LACTATED RINGERS 1,000 ML IV ONE (06:01)
--- NOTE | 2017-05-05 06:34 | XRay Report ---
Portable chest Date: 05/05/2017 Clinical history: Ventilator Comparison: 05/04/2017 Technique: Portable AP sitting chest Findings: Stable cardiomegaly and supportive devices. Progressive diffuse parenchymal findings in both mid to lower lung zones with minimally larger pleural effusions. Stable mediastinum and osseous structures. Impression: Progressive bibasilar atelectasis/infiltration/edema with minimally larger small bilateral pleural effusions. The supportive devices remain in satisfactory position. PROCEDURE INTERPRETED AT [facility] DEPARTMENT OF RADIOLOGY Final Report Signed by: Dr. Carolyne Lynch
--- NOTE | 2017-05-05 08:19 | Pulmonology Progress Note ---
Pulmonary - PN: Subj Interval history: Patient is sedated on the ventilator and has no new complaints. Urine output has been low. She has required fluid boluses. ABGs acceptable. We are hyperventilating her to have correct the metabolic acidosis. Exam (Progress Note) - Constitutional Vitals: Period Temp Pulse Resp BP Sys/Yousif Pulse Ox Last 24 Hr 96.2 F-97.7 F 68-117 8-38 81-130/47-78 95-100 Exam: Patient not responsive vital signs normal. Pupils reactive eyes prominent. Arcus senilis. Orotracheal tube in place. Neck supple no bruits. Chest reveals a few basilar rhonchi. Heart rapid rate normal rhythm. Abdomen soft bandaged no bowel sounds. Extremities no clubbing cyanosis edema. Results - Labs CBC & BMP: 05/05/17 03:45 05/05/17 03:45 Lab Results: I have reviewed the past 24 hour labs - Diagnostic Findings Procedure: Chest x-ray: image reviewed by me (Bibasilar interstitial infiltrates. ET tube may be a little low. We will pulled back 1-2 cm.) Assessment and Plan (1) Respiratory failure following trauma and surgery Status: Acute Assessment and plan: Patient is on the ventilator following laparotomy. She had vomiting and may well have aspirated. She had a her PEG tube draining feeding solution into the peritoneum. It is been removed and this is been placed under drainage. ABG show metabolic acidosis. Will step up mechanical ventilation a little. She is getting some bicarb. Her prognosis is poor. 05/05/2017 ABGs okay except for metabolic acidosis. This will need to be corrected before she can be extubated. Low urine output. Getting fluid challenges. Current Visit: Yes (2) Severe sepsis Status: Acute Assessment and plan: Broad-spectrum antibiotics. Fluid resuscitation. Blood pressure stable at present. She still has some metabolic acidosis. creatinine has risen to 2.0 05/05/2017 blood pressure looks a little better. Creatinine up to 2.6. Current Visit: Yes (3) Acute abdomen Status: Acute Assessment and plan: Status post laparotomy. PEG tube had dislodged from the stomach Current Visit: Yes (4) Dementia Status: Chronic Assessment and plan: Patient had underlying dementia and previous stroke. Family will make a decision in a day or 2 as far as how long to support her. 05/05/2017 family relates that she does not interact usually. She will just look around and move a little. That is what she is doing now. Current Visit: No (5) Acute kidney injury Status: Acute Assessment and plan: Creatinine is rising and urine output following. Agree with IV fluids. Current Visit: Yes
[2017-05-05] MEDS: DEXTROSE 5% NACL 0.45% 1,000 ML IV SCH ×2 (08:24→17:13)
[2017-05-05] MEDS ORDERED: SODIUM POLYSTYRENE SULFATE 15 GM/60 ML BOTTLE RECTAL ONE (08:30)
[2017-05-05] MEDS: CLOPIDOGREL 75 MG TABLET PEG SCH (08:41)
[2017-05-05] MEDS: SIMVASTATIN 20 MG TABLET PEG SCH (08:41)
[2017-05-05] MEDS: PANTOPRAZOLE 40 MG VIAL IV SCH (08:41)
--- NOTE | 2017-05-05 10:22 | Anesthesia Post-Op ---
Anesthesia Post OP - Post Ansesthetic Evaluation Patient seen in post op: Yes Resp: other (vent) CV: other (levophed infusion) Mental: other (unresposive (no change from preop)) Temp: within normal limits [id number]: within normal limits Nausea and Vomiting: within normal limits Pain: within normal limits
--- NOTE | 2017-05-05 10:35 | Gastrointestinal Progress Note ---
Assessment and Plan (1) PEG (percutaneous endoscopic gastrostomy) status Status: Acute Assessment and plan: 05/05-findings noted as below. Postop day 2. Continue IV antibiotics. Continue to monitor at present time. Plan an addendum to follow Dr. Brown. 05/04-Admitted with sepsis, post PEG tube replacement on yesterday. Findings of fluroscopy of PEG not projecting into stomach, free spillage of contrast into peritoneal cavity. Tube feedings held. Plan and addendum to follow by Dr Brown. Current Visit: No Gastroenterology - PN: Subj Interval history: CC: Peritonitis Patient is seen, on ventilator, without sedation. She will open her eyes to stimuli however does not follow commands but this is close to patient's baseline prior to admission. She is noted on yesterday afternoon to undergo exploratory laparotomy with partial gastrectomy due to perforation and peritonitis. She is noted just prior to receiving her anesthesia. Patient began vomiting and became hypotensive in which pressors were started. She has done well since surgery impresses are now off. She is hyperkalemic today with potassium 5.4. BMS has been placed in retention Kayexalate enemas have been started. She is also noted to have a mild elevation in her LFTs. Creatinine up at 2.6. Abdomen is soft, no bowel sounds noted. Small amount of gastric drainage noted from NG. ROS: No acute distress noted Exam (Progress Note) - Constitutional Vitals: Period Temp Pulse Resp BP Sys/Yousif Pulse Ox Last 24 Hr 96.2 F-97.7 F 68-117 8-38 81-154/47-78 95-100 - Other Additional findings: General appearance: normal weight, no acute distress - Head Head exam: Present: normal inspection, normocephalic - Eye Eye exam: Present: other (lids and conjunctiva unremarkable). Absent: scleral icterus - ENT ENT exam: Present: normal exam, normal oropharynx - Neck Neck exam: Present: normal inspection - Respiratory Respiratory exam: Present: clear to auscultation bilaterally. Absent: rales, rhonchi, wheezes - Cardiovascular Cardiovascular exam: Present: regular rate and rhythm. Absent: diastolic murmur , JVD, systolic murmur - GI/Abdominal GI/Abdominal exam: Present: normal bowel sounds, soft. Absent: ascites, distended, mass, organomegaly, tenderness - Extremities Exam Extremities exam: Present: normal inspection, full ROM - Back Exam Back exam: Present: normal inspection - Neurological Exam Neurological exam: Present: alert, altered - Psychiatric Psychiatric exam: Present: normal affect, normal mood - Skin Skin exam: Present: normal color, warm, dry Results - Labs CBC & BMP: 05/05/17 03:45 05/05/17 03:45 Lab Results: I have reviewed the past 24 hour labs
--- NOTE | 2017-05-05 11:19 | Hospitalist Progress Note ---
Assessment and Plan (1) Acute abdomen Status: Acute Assessment and plan: 1)post op day 1 after gastrectomy to repair perforated stomach- NG to suction. 2)sepsis- HD stable, on vanc and zosyn. GPC in blood. Pyuria on admission but UCx negative so far. 3)acute respiratory failure-aspirated at intubation in OR when she vomited. on antibiotics, vent per pulmonary. Doing CPAP trials. 4)DM- SSI. add lantus 10U daily 5)HTN- holding meds. 6)SKYLAR- due to sepsis. on IVF, follow creatinine 7)hyperkalemia- kayexalate enema and repeat level. 8)metabolic acidosis- continue IVF. hyperventilating. bolused several times last night for poor UOP. 9)dementia- at her baseline now. 10)PPX- start lovenox. on plavix as home med. 11)nutrition- start TPN. Current Visit: Yes (2) Pneumonia Status: Acute Current Visit: No (3) Atrial flutter Status: Acute Current Visit: No (4) Dementia Status: Chronic Current Visit: No (5) Severe sepsis Status: Acute Current Visit: Yes (6) UTI (urinary tract infection) Status: Acute Current Visit: Yes Hospitalist: Subjective Interval history: Ms Tyson is about the same. She is stable on vent, good BP without pressors. One Bcx with GPC- she is on pharmacy dosed vanc as well as zosyn. UOP down and creatinine up- I have increased her IVF rate and changed to D5half normal for her sodium. Exam - Constitutional Vitals: Period Temp Pulse Resp BP Sys/Yousif Pulse Ox Last 24 Hr 96.2 F-97.7 F 68-117 8-38 81-154/47-78 95-100 General appearance: normal weight, no acute distress (sedated) - Respiratory Respiratory exam: Present: rales (at posterior bases). Absent: rhonchi, wheezes - Cardiovascular Cardiovascular exam: Present: regular rate and rhythm - GI/Abdominal GI/Abdominal exam: Present: hypoactive bowel sounds - Extremities Exam Extremities exam: Absent: edema - Skin Skin exam: Present: warm, dry Results - Labs CBC & BMP: 05/05/17 03:45 05/05/17 03:45 Lab Results: I have reviewed the past 24 hour labs
--- NOTE | 2017-05-05 12:19 | Event Note ---
Patient is an 82-year-old female postop day #1 status post exploratory laparotomy with partial gastrectomy for gastric perforation. She is currently intubated and sedated and requiring vasopressors for blood pressure management with low urine output approximately 15 cc/h. Patient received aggressive IV hydration with minimal turnaround. She remains on IV antibiotics vancomycin and Zosyn. NG tube to intermittent low wall suction 100 cc of output. Patient is DNR. Objective: VS: Blood pressure 107/58 with Levophed support; tachycardic 108; Tachypneic 22- 26 General: Intubated - ET and NG in place Abdomen: Surgical dressing is with minimal dry drainage and intact. Abdomen slightly distended with hypoactive bowel sounds. CBC with WBC 9.1, hemoglobin 12.5, hematocrit 38.2, platelets 117 CMP sodium 147, potassium 5.4, BUN 45, creatinine 2.6, calcium 8.3, bilirubin 1.5, AST 53, ALT is 24, alk phos 46 Assessment and plan Patient is postop day 1 status post exploratory laparotomy with partial gastrectomy for gastric perforation. PPI daily Continue IV antibiotics Continue NG tube; agree with TPN for nutritional support Patient with low urine output for refractory to aggressive IV hydration; will discuss further volume expansion with Dr. Watts
[2017-05-05] MEDS: ENOXAPARIN 30 MG/0.3 ML SYRINGE SUBCUT SCH (12:42)
[2017-05-05] MEDS: INSULIN GLARGINE 100 UNIT/ML SUBCUT SCH (12:43)
[2017-05-05] MEDS ORDERED: SODIUM CHLORIDE 0.9% 1,000 ML IV ONE (14:42)
[2017-05-05] MEDS: FAT EMULSION 20% 250 ML IV SCH (14:55)
[2017-05-05] MEDS ORDERED: [UNRECOGNIZED DRUG - OTHER] IV SCH (17:00)
[2017-05-05] MEDS ORDERED: TRACE ELEMENTS IV SCH (17:00)
[2017-05-05] MEDS ORDERED: MULTIVITAMIN IV SCH (17:00)
[2017-05-05] MEDS ORDERED: AMINO ACIDS IV SCH (17:00)
[2017-05-05] MEDS ORDERED: DEXTROSE 10% 1,000 ML IV PRN (17:00)
--- NOTE | 2017-05-05 18:18 | Pathology Report from [facility] ---
[facility] [place] : [id number] PATIENT NAME : Ann Wallis ORDERING DR : Dayne Watts MD CLINICAL HX: Exploratory lap sepsis POST-OP DX: Same SPECIMEN INFO: Stomach tissue GROSS DESCRIPTION: The specimen is received in formalin labeled with the patients name ANN WALLIS and STOMACH TISSUE consists of a fragment of brown skin and subcutaneous tissue measuring 2.0 x 1.5 x 2.5 cm. Sectioning through the tissue reveals a hemorrhagic fissure-like area which leads to an attached portion of stomach measuring 5.5 x 1.7 cm. Cut surface of the stomach tissue is pink-loyd with no masses or other lesions appreciated. Supply Cataloguer sections submitted in cassettes A and B. DIAGNOSIS FOR ANN WALLIS: SKIN & STOMACH TISSUE: Skin with superficial ulceration and dermal inflammation, hemorrhage. Benign gastric mucosa. COLLECTED DATE: 05/04/2017 [facility] REPORT DATE: 05/05/2017 ELECTRONICALLY SIGNED BY: Nathaniel Rajan III, M.D. 05/05/2017 - 13:21:16 [facility]
[2017-05-06] MEDS: DEXTROSE 5% NACL 0.45% 1,000 ML IV SCH ×3 (00:39→18:50)
[2017-05-06] MEDS: HYDROmorphone 2 MG/1 ML VIAL IM PRN ×3 (05:55→15:17)
[2017-05-06] MEDS: INSULIN LISPRO 100 UNIT/ML SUBCUT SCH ×3 (06:07→18:35)
[2017-05-06 06:50] LABS: Magnesium 1.8 MG/DL (1.8-2.4); Phosphorous 2.9 MG/DL (2.5-4.9); Prealbumin 60.7 MG/DL (20-40)
[2017-05-06] MEDS: PIPERACILLIN/TAZOBACTAM 3,375 MG in SODIUM CHLORIDE 0.9% 100 ML IV SCH ×2 (07:23→20:40)
--- NOTE | 2017-05-06 07:40 | Pulmonology Progress Note ---
Pulmonary - PN: Subj Interval history: Patient is sedated on the ventilator and has no new complaints. Urine output has been low. She has required fluid boluses. ABGs acceptable. We are hyperventilating her to have correct the metabolic acidosis. 05/06/17 sedation is being held. Patient is tolerating CPAP trials. Chest x- ray shows some basilar atelectasis unchanged from before. We will see if we can get her extubated this morning Exam (Progress Note) - Constitutional Vitals: Period Temp Pulse Resp BP Sys/Yousif Pulse Ox Last 24 Hr 97.1 F-98.7 F 97-121 12-31 91-162/45-75 91-99 Exam: Patient not responsive vital signs normal. Pupils reactive eyes prominent. Arcus senilis. Orotracheal tube in place. Neck supple no bruits. Chest reveals a few basilar rhonchi. Heart rapid rate normal rhythm. Abdomen soft bandaged no bowel sounds. Extremities no clubbing cyanosis edema. Little change from yesterday. Results - Labs CBC & BMP: 05/05/17 03:45 05/05/17 03:45 Lab Results: I have reviewed the past 24 hour labs - Diagnostic Findings Procedure: Chest x-ray: image reviewed by me (Mild basilar atelectasis. ET tube good position.) Assessment and Plan (1) Respiratory failure following trauma and surgery Status: Acute Assessment and plan: Patient is on the ventilator following laparotomy. She had vomiting and may well have aspirated. She had a her PEG tube draining feeding solution into the peritoneum. It is been removed and this is been placed under drainage. ABG show metabolic acidosis. Will step up mechanical ventilation a little. She is getting some bicarb. Her prognosis is poor. 05/05/2017 ABGs okay except for metabolic acidosis. This will need to be corrected before she can be extubated. Low urine output. Getting fluid challenges. 05/06/2017 patient did tolerate CPAP yesterday. We will try to get her extubated this morning. Mental status will not allow to check mechanics. Current Visit: Yes (2) Severe sepsis Status: Acute Assessment and plan: Broad-spectrum antibiotics. Fluid resuscitation. Blood pressure stable at present. She still has some metabolic acidosis. creatinine has risen to 2.0 05/05/2017 blood pressure looks a little better. Creatinine up to 2.6. 05/06/2017 sepsis better control. Current Visit: Yes (3) Acute abdomen Status: Acute Assessment and plan: Status post laparotomy. PEG tube had dislodged from the stomach Current Visit: Yes (4) Dementia Status: Chronic Assessment and plan: Patient had underlying dementia and previous stroke. Family will make a decision in a day or 2 as far as how long to support her. 05/05/2017 family relates that she does not interact usually. She will just look around and move a little. That is what she is doing now. 05/06/2017 pre-existing severe dementia. Current Visit: No (5) Acute kidney injury Status: Acute Assessment and plan: Creatinine is rising and urine output following. Agree with IV fluids. 05/06/2017 labs pending today. Current Visit: Yes
--- NOTE | 2017-05-06 07:52 | XRay Report ---
Portable chest Date: 05/06/2017 Clinical history: Ventilator Comparison: 05/05/2017 Technique: Portable AP sitting chest Findings: Stable cardiomegaly and supportive devices. Persistent diffuse parenchymal findings at the lung bases with small bilateral pleural effusions. Stable mediastinum and osseous structures. Impression: No significant change in the appearance on the chest when compared to the previous exam. PROCEDURE INTERPRETED AT [facility] DEPARTMENT OF RADIOLOGY Final Report Signed by: Dr. Carolyne Lynch
[2017-05-06] MEDS: INSULIN GLARGINE 100 UNIT/ML SUBCUT SCH ×2 (08:49→11:47)
[2017-05-06] MEDS: PANTOPRAZOLE 40 MG VIAL IV SCH (08:50)
[2017-05-06] MEDS: SIMVASTATIN 20 MG TABLET PEG SCH (08:50)
[2017-05-06] MEDS: CLOPIDOGREL 75 MG TABLET PEG SCH (08:50)
[2017-05-06] MEDS ORDERED: VANCOMYCIN INJ 1,000 MG in SODIUM CHLORIDE 0.9% 250 ML IV SCH (09:00)
[2017-05-06 09:30] LABS: ABG Oxygen Saturation 98.4 % (95-100); ABG PCO2 27.4 MM HG (35-48); ABG PH 7.297 (7.35-7.45); ABG TCO2 12.3 MMOL/L (23-27)
--- NOTE | 2017-05-06 10:02 | Gastrointestinal Progress Note ---
Assessment and Plan (1) PEG (percutaneous endoscopic gastrostomy) status Status: Acute Assessment and plan: 05/06-postop day 2 exploratory lap. All pressure support. Continuing weaning trials. Plan an addendum to follow Dr. Brown. 05/05-findings noted as below. Postop day 1. Continue IV antibiotics. Continue to monitor at present time. Plan an addendum to follow Dr. Brown. 05/04-Admitted with sepsis, post PEG tube replacement on yesterday. Findings of fluroscopy of PEG not projecting into stomach, free spillage of contrast into peritoneal cavity. Tube feedings held. Plan and addendum to follow by Dr Brown. Current Visit: No Gastroenterology - PN: Subj Interval history: CC: Peritonitis Patient is seen, remains on ventilator continue with CPAP trials at present time. She is postop day 2 following post exploratory laparotomy with partial gastrectomy. Her eyes are open however she does not follow commands. She is off pressor support at this time with good urine output. Abdomen is soft, quiet abdomen, dressings intact. NG tube with minimal drainage. She continues on TPN support. ROS: No acute distress noted. Exam (Progress Note) - Constitutional Vitals: Period Temp Pulse Resp BP Sys/Yousif Pulse Ox Last 24 Hr 97.1 F-98.7 F 97-121 12-31 91-162/45-75 91-99 - Other Additional findings: General appearance: normal weight, no acute distress - Head Head exam: Present: normal inspection, normocephalic - Eye Eye exam: Present: other (lids and conjunctiva unremarkable). Absent: scleral icterus - ENT ENT exam: Present: normal exam, normal oropharynx - Neck Neck exam: Present: normal inspection - Respiratory Respiratory exam: Present: clear to auscultation bilaterally. Absent: rales, rhonchi, wheezes - Cardiovascular Cardiovascular exam: Present: regular rate and rhythm. Absent: diastolic murmur , JVD, systolic murmur - GI/Abdominal GI/Abdominal exam: Present: normal bowel sounds, soft. Absent: ascites, distended, mass, organomegaly, tenderness - Extremities Exam Extremities exam: Present: normal inspection, full ROM - Back Exam Back exam: Present: normal inspection - Neurological Exam Neurological exam: Present: alert, altered - Psychiatric Psychiatric exam: Present: normal affect, normal mood - Skin Skin exam: Present: normal color, warm, dry Results - Labs CBC & BMP: 05/05/17 03:45 05/05/17 03:45 Lab Results: I have reviewed the past 24 hour labs
[2017-05-06 10:30] LABS: Calcium 7.4 MG/DL (8.5-10.1); Potassium 4.3 MMOL/L (3.5-5.1)
[2017-05-06] MEDS: ENOXAPARIN 30 MG/0.3 ML SYRINGE SUBCUT SCH (11:00)
--- NOTE | 2017-05-06 11:22 | Hospitalist Progress Note ---
Assessment and Plan (1) Acute abdomen Status: Acute Assessment and plan: 1)S/P ex lap with partial gastrectomy to repair perforation of stomach- NG to suction. No tube feeds until ok with Dr Watts. 2)sepsis- off pressors, BP high when moved, likely when she hurts more. adjust pain meds and monitor. cultures with 1/2 BCx with non MRSA GPC. stopped Vanc, continue Zosyn. Ucx negative 3)acute respiratory failure- on vent and may be extubated today 4)DM- on lantus 10 and SSI, glucoses remain in 201-295 range. increase lantus to 20U a day 5)HTN- holding meds 6)SKYLAR due to sepsis- on IVF, creatinine now 2.8- continues to rise slowly. 7)metabolic acidosis- bicarb infusion added this morning. 8)hyperkalemia- resolved 9)dementia 10)ppx-on lovenox. plavix as home med. on ppi. 11)I haven't seen her family in a couple of days. Will try to touch base with them today. Current Visit: Yes (2) Pneumonia Status: Acute Current Visit: No (3) Atrial flutter Status: Acute Current Visit: No (4) Dementia Status: Chronic Current Visit: No (5) Severe sepsis Status: Acute Current Visit: Yes (6) UTI (urinary tract infection) Status: Acute Current Visit: Yes Hospitalist: Subjective Interval history: Mrs Tyson is hemodynamically stable and doing well with CPAP but has persistent metabolic acidosis reflected on labs this morning. Exam - Constitutional Vitals: Period Temp Pulse Resp BP Sys/Yousif Pulse Ox Last 24 Hr 97.3 F-98.7 F 97-121 12-31 99-162/45-75 91-100 General appearance: normal weight - Eye Eye exam: Present: EOMI. Absent: scleral icterus Pupils: Present: SANDI - Respiratory Respiratory exam: Present: clear to auscultation bilaterally - Cardiovascular Cardiovascular exam: Present: regular rate and rhythm - GI/Abdominal GI/Abdominal exam: Present: hypoactive bowel sounds, soft - Extremities Exam Extremities exam: Present: edema (hands puffy, trace LE edema) - Neurological Exam Neurological exam: Absent: alert (sedated) - Skin Skin exam: Present: warm, dry Results - Labs CBC & BMP: 05/05/17 03:45 05/06/17 09:35 Lab Results: I have reviewed the past 24 hour labs
[2017-05-06] MEDS: SODIUM BICARB INJ 50 MEQ in DEXTROSE 5% 1,000 ML IV SCH (12:31)
[2017-05-06] MEDS: FAT EMULSION 20% 250 ML IV SCH (14:13)
--- NOTE | 2017-05-06 14:31 | Nephrology Consult Note ---
History of Present Illness Chief complaint: Increased BUN and creatinine History of present illness: Ms. Tyson is a 82 year old female who was admitted a few days ago when she presented with decreased mentation and fever. The patient is a assisted patient and is bedbound. She had been in the hospital earlier in the morning when she was admitted for a PEG tube exchange. The patient with further evaluation was found to have significant abdominal pathology and was taken to the OR for an exploratory laparotomy where she was found to have a perforated bowel. The patient had the affected area resected and is now in the ICU on the ventilator getting NG suction. We were asked see the patient for increasing creatinine. On presentation patient's creatinine was around 1.8 mg/dL her creatinine now is up to 2.8 mg/dL a few days later. Her urine output is also decreased she has had about 75 cc out over the past 12 hours. Review of the patient's previous creatinines from previous hospitalizations reveals that her creatinine has ranged from normal to a creatinine around 1.7 mg/dL in the past several months. The history is taken from the chart and nursing personnel as the patient is unable to contribute to the history. Review of systems is unable be obtained due to patient's medical condition PE: General: Chronically ill-appearing Eyes: Pupils are round and reactive, conjunctivae are clear ENT: Nose is clear, O/P reveals moist mucous membranes Neck: Supple, no thyromegaly Lymphatics: No cervical, supraclavicular or axillary adenopathy Heart: Regular rate and rhythm, no edema Lungs: Clear to auscultation anteriorly, chest expansion symmetric Abdomen: Soft, normoactive bowel sounds, no hepatomegaly Musculoskeletal: No joint erythema or effusions or joint asymmetry Skin: Normal turgor, normal hydration, no rash Neuro/Psych: Patient is sedate she does not respond does not have any purposeful voluntary movements, her eyes are open, she has no insight into her illness Home Medications Medication Instructions Recorded Confirmed Type Donepezil HCl 20 mg PEG DAILY 07/11/16 05/04/17 History Simvastatin [Zocor] 20 mg PEG DAILY 07/11/16 05/04/17 History Clopidogrel [Plavix] 75 mg PEG DAILY 02/04/17 05/04/17 History Insulin NPH [HumuLIN N] 10 unit SUBCUT BID 02/04/17 05/04/17 History Insulin Regular, Human [NovoLIN R] 0 - 15 unit SUBCUT ACHS 02/04/17 05/04/17 History Lisinopril [Prinivil] 20 mg PEG DAILY 02/04/17 05/04/17 History Trazodone HCl 100 mg PEG BEDTIME 02/04/17 05/04/17 History cloNIDine 0.2 MG/24 HR PATCH 1 patch TRANSDERM TU 02/04/17 05/04/17 History [[id number] Patch] Albuterol/Ipratropium Neb [Duoneb] 3 ml RESP TX RT Q6H PRN #0 02/12/17 Rx amLODIPine [Norvasc] 5 mg PO DAILY 05/03/17 05/04/17 History Cetirizine HCl [Cetirizine Tab] 10 mg PO DAILY 05/04/17 05/04/17 History Allergies Allergy/AdvReac Type Severity Reaction Status Date / Time No Known Allergies Allergy Verified 05/03/17 22:08 Medical,Surgical,& Family Hx - Medical History Cardio: History of: Cerebrovascular Disease, Hypertension No history of: Aneurysm, Cardiac Dysrhythmia, Congenital Heart Disease, CHF, CAD, [place], Pacemaker, PVD, Valvular Heart Disease, Cardiovascular Problems Psychological: History of: Psychiatric Problems (Dementia) Neurology: History of: Cerebral Hemorrhage, Cerebrovascular Accident, Dementia No history of: Brain Aneurysm, Cerebral Palsy, Migraine, Multiple Sclerosis, Parkinson's Disease, Peripheral Neuropathy, Seizures, TIA, Vertigo, Neurologocal Cancer Endocrine: History of: Diabetes Mellitus (IDDM), Diabetes Mellitus (NIDDM), Dyslipidemia Gastrointestinal: History of: GERD, GI Problems (PEG tube) Other: No history of: Anesthesia Reactions - Surgical History Neurologic Surgeries: Surgical HX of: Cerebral Hemorrhage Patient denies: Brain Aneurysm, Neurologic Surgery HEENT Surgeries: Patient denies: Tonsilectomy & Adenoidectomy Abdominal Surgeries: Surgical HX of: EGD (peg placement) Reproductive Surgeries: Surgical HX of;: Genitourinary 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), Hysterectomy - Family History Family History: Reports;: Family Cancer (son-colon), Family Diabetes (daughters) , Family Heart Disease (mother), Family Hypertension (all six children), Family Stroke (daugher) Denies;: Family Anesthesia Reaction - Social History Smoking Status: Unknown if ever smoked Frequency of Alcohol Use: Unknown Type of Drug Use: Unknown Exam - Vital Signs Vital signs: Period Temp Pulse Resp BP Sys/Yousif Pulse Ox Last 24 Hr 97.3 F-98.7 F 100-117 12-28 99-162/45-71 91-100 Results - Labs CBC & BMP: 05/05/17 03:45 05/06/17 09:35 Assessment and Plan (1) Acute kidney injury Status: Acute Assessment and plan: Patient likely has a ATN injury from sepsis and malperfusion. Her urine output is decreasing, I am going to add some acetate for her acidosis to her TPN. Current Visit: Yes (2) Acute abdomen Status: Acute Current Visit: Yes (3) Dehydration Status: Acute Current Visit: Yes (4) Severe sepsis Status: Acute Assessment and plan: Continue antibiotics Current Visit: Yes (5) Dementia Status: Chronic Current Visit: No (6) Diabetes mellitus Status: Chronic Current Visit: No Qualifiers: Diabetes mellitus type: type 2 (7) Hypertension Status: Chronic Current Visit: No Qualifiers: Hypertension type: essential hypertension Qualified Code(s): I10 - Essential (primary) hypertension
--- NOTE | 2017-05-06 15:01 | Event Note ---
Patient presented with sepsis. She underwent partial gastrectomy at a gastric perforation near her G-tube. She had tube feeds in the abdomen. She has off pressors. Her urine output is better. Her abdomen is soft nondistended. NG tube in place. Continue antibiotics and NG tube for now. She is on TPN. Can probably start tube feeds through the NG in a few days but would recommend waiting until the stomach has completely healed before placing another PEG tube.
--- NOTE | 2017-05-06 15:08 | Event Note ---
Patient is an 82-year-old female postop day #2 status post exploratory laparotomy with partial gastrectomy for gastric perforation. She is currently intubated and not requiring vasopressor support; low urine output slightly improved to 20-30cc/h. She remains on IV antibiotics vancomycin and Zosyn. NG tube to intermittent low wall suction Objective: VS: Blood pressure 107/58 with Levophed support; tachycardic 108; Tachypneic 22- 26 General: Intubated - ET and NG in place Abdomen: Surgical incision c/d/i. Abdomen slightly distended with hypoactive bowel sounds. Abd soft. No CBC today. BMP: creat increased 2.8 Assessment and plan Patient is postop day 2 status post exploratory laparotomy with partial gastrectomy for gastric perforation. PPI daily Continue IV antibiotics Continue NG tube; agree with TPN for nutritional support Patient with improved UO. Continue to monitor.
[2017-05-06] MEDS ORDERED: TRACE ELEMENTS IV SCH (17:00)
[2017-05-06] MEDS ORDERED: SODIUM ACETATE IV SCH (17:00)
[2017-05-06] MEDS ORDERED: MULTIVITAMIN IV SCH (17:00)
[2017-05-06] MEDS ORDERED: [UNRECOGNIZED DRUG - OTHER] IV SCH (17:00)
[2017-05-07] MEDS: INSULIN LISPRO 100 UNIT/ML SUBCUT SCH ×5 (00:20→23:11)
[2017-05-07] MEDS: HYDROmorphone 2 MG/1 ML VIAL IM PRN ×5 (00:37→23:24)
[2017-05-07 02:54] LABS: Basophils % 0.1 % (0.0-0.8); Hematocrit 28.6 VOL% (35.7-47.0); Hemoglobin 9.6 GM/DL (12.0-16.0); Immature Granulocytes % 2.7 %; Immature Granulocytes Absolute 0.24 #; Lymphocytes # 0.5 10*3/uL (1.4-4.0); Lymphocytes % 5.3 % (21.3-54.2); Mean Corpuscular HGB Conc 33.6 GM/DL (32-36); Mean Corpuscular Hemoglobin 30 PG (27-34); Mean Platelet Volume 13.1 FL (9.6-12.0); Monocytes # 0.4 10*3/uL (0.11-0.8); Monocytes % 4.1 % (1.7-12.7); NRBC # 0.05 10*3/uL; Neutrophils # 7.8 10*3/uL (1.4-7.4); Neutrophils % 87.8 % (38.7-73.9); Red Blood Count 3.25 MC/CUMM (3.8-5.5); Red Cell Distribution Width 17.1 % (9.3-17.3); White Blood Count 8.8 T/CUMM (4-12)
[2017-05-07 02:55] LABS: Platelet Count 68 T/CUMM (130-400)
[2017-05-07 03:25] LABS: Calcium 7.2 MG/DL (8.5-10.1); Osmolality,Calculated 305.3 MOS/KG (273-304); Potassium 3.8 MMOL/L (3.5-5.1)
[2017-05-07 04:34] LABS: Band Neutrophils 7 % (0-10); Eosinophils 1 % (0-10); Lymphocytes 6 % (20-55); Myelocytes 1 %; Platelet Estimate Decreased; Segmented Neutrophils 79 % (50-85)
[2017-05-07 04:36] LABS: Dohle Bodies Few
[2017-05-07 04:37] LABS: Anisocytosis 1+; Hypochromasia Slight; Microcytosis 1+; Ovalocytes 1+; Polychromasia Few
[2017-05-07 04:43] LABS: Metamyelocytes 3 %
[2017-05-07 04:44] LABS: Total Cells Counted 100
--- NOTE | 2017-05-07 07:06 | XRay Report ---
Exam: XR chest 1V portable Date: 05/07/2017 4:00 AM Indication: Follow-up ventilator respiratory failure Comparison: None Technical: AP portable Findings: Endotracheal tube nasogastric tube are present. Low volume effusions atelectatic changes are present. No pneumothorax. Lateral marginal osteophytes are present. Mild cardiac enlargement. Impression: 1. Stable appearance of the life support tubing with endotracheal tube at the aortic knob and nasogastric traverses esophagus. 2. Cardiomegaly with low volume effusions atelectatic change present bilaterally, unchanged from prior study PROCEDURE INTERPRETED AT [facility] DEPARTMENT OF RADIOLOGY Final Report Signed by: Dr. Prakash Ruelas
[2017-05-07 07:43] LABS: ABG Base Excess -9.2 MMOL/L (-2.5-2.5); ABG HCO3 17.2 MMOL/L (20-26); ABG PCO2 32.5 MM HG (35-48); ABG PH 7.307 (7.35-7.45); ABG TCO2 14.6 MMOL/L (23-27)
--- NOTE | 2017-05-07 08:42 | Pulmonology Progress Note ---
Pulmonary - PN: Subj Interval history: Patient is sedated on the ventilator and has no new complaints. Urine output has been low. She has required fluid boluses. ABGs acceptable. We are hyperventilating her to have correct the metabolic acidosis. 05/06/17 sedation is being held. Patient is tolerating CPAP trials. Chest x- ray shows some basilar atelectasis unchanged from before. We will see if we can get her extubated this morning 05/07/2017 patient's ABGs acceptable except for metabolic acidosis. Creatinine is up to 3.0. Urine output is marginal. She will not be able to do mechanics. Will check ABGs on a T-tube. If those are acceptable will go ahead with extubation today. Family does not want long-term mechanical ventilation. Exam (Progress Note) - Constitutional Vitals: Period Temp Pulse Resp BP Sys/Yousif Pulse Ox Last 24 Hr 97.1 F-97.8 F 86-107 12-21 115-158/49-79 97-100 Exam: Patient not responsive vital signs normal. Pupils reactive eyes prominent. Arcus senilis. Orotracheal tube in place. Neck supple no bruits. Chest reveals a few basilar rhonchi. Heart rapid rate normal rhythm. Abdomen soft bandaged no bowel sounds. Extremities no clubbing cyanosis edema. Again, little change from yesterday. Results - Labs CBC & BMP: 05/07/17 02:35 05/07/17 02:35 Lab Results: I have reviewed the past 24 hour labs - Diagnostic Findings Procedure: Chest x-ray: image reviewed by me (Mild bibasilar atelectasis ET tube good position.) Assessment and Plan (1) Respiratory failure following trauma and surgery Status: Acute Assessment and plan: Patient is on the ventilator following laparotomy. She had vomiting and may well have aspirated. She had a her PEG tube draining feeding solution into the peritoneum. It is been removed and this is been placed under drainage. ABG show metabolic acidosis. Will step up mechanical ventilation a little. She is getting some bicarb. Her prognosis is poor. 05/05/2017 ABGs okay except for metabolic acidosis. This will need to be corrected before she can be extubated. Low urine output. Getting fluid challenges. 05/06/2017 patient did tolerate CPAP yesterday. We will try to get her extubated this morning. Mental status will not allow to check mechanics. 05/07/2017 patient tolerating CPAP. Will do a T-tube trial and hope to extubate this morning. She is a DO NOT RESUSCITATE per previous discussion Current Visit: Yes (2) Severe sepsis Status: Acute Assessment and plan: Broad-spectrum antibiotics. Fluid resuscitation. Blood pressure stable at present. She still has some metabolic acidosis. creatinine has risen to 2.0 05/05/2017 blood pressure looks a little better. Creatinine up to 2.6. 05/06/2017 sepsis better control. 05/07/2017 this is better. However she does have acute kidney injury and metabolic acidosis. Current Visit: Yes (3) Acute abdomen Status: Acute Assessment and plan: Status post laparotomy. PEG tube had dislodged from the stomach 05/07/2017 status post laparotomy for a dislodged PEG tube with feedings in the peritoneal space. Current Visit: Yes (4) Dementia Status: Chronic Assessment and plan: Patient had underlying dementia and previous stroke. Family will make a decision in a day or 2 as far as how long to support her. 05/05/2017 family relates that she does not interact usually. She will just look around and move a little. That is what she is doing now. 05/06/2017 pre-existing severe dementia. 05/07/2017 patient has severe dementia. Current Visit: No (5) Acute kidney injury Status: Acute Assessment and plan: Creatinine is rising and urine output following. Agree with IV fluids. 05/06/2017 labs pending today. 05/07/2017 creatinine up to 3.0. She is making urine. Hopefully we will see this improve in the next couple of days. Current Visit: Yes
[2017-05-07] MEDS: SODIUM BICARB INJ 50 MEQ in DEXTROSE 5% 1,000 ML IV SCH (09:24)
[2017-05-07] MEDS: SIMVASTATIN 20 MG TABLET PEG SCH (09:25)
[2017-05-07] MEDS: CLOPIDOGREL 75 MG TABLET PEG SCH (09:25)
[2017-05-07] MEDS: PANTOPRAZOLE 40 MG VIAL IV SCH (09:25)
[2017-05-07] MEDS: INSULIN GLARGINE 100 UNIT/ML SUBCUT SCH (09:25)
[2017-05-07] MEDS: PIPERACILLIN/TAZOBACTAM 3,375 MG in SODIUM CHLORIDE 0.9% 100 ML IV SCH ×2 (09:54→19:59)
--- NOTE | 2017-05-07 10:11 | Nephrology Progress Note ---
Nephrology - PN: Subj Interval history: Patient remains intubated and sedate. Physical exam general-patient opens her eyes to mild to moderate sternal rub and her name being called, heart is regular rate and rhythm, she has swelling in her thighs but no real pitting appreciated, lungs are clear to auscultation anteriorly, abdomen is soft with positive bowel sounds Assessment/plan 1. Acute renal failure-this patient has ATN injury related to sepsis, she has been getting IV fluids her input exceeds her output by about 10 L for the past 3 days, her weights are unhelpful. At this point I think she is adequately volume resuscitated. I am going to decrease her IV fluids. 2. Metabolic acidosis-I will increase her bicarb in the D5 solution and will also increase the sodium acetate in her TPN. 3. Respiratory failure-continue vent support-pulmonary is trying to wean her as the patient's family does not desire prolonged ventilation for her 4. Dementia-this patient was poorly responsive prior to her admission and was a bedbound care home patient. 5. Sepsis-continue antibiotics Exam (PN)-Nephrology - Vital Signs Vital signs: Period Temp Pulse Resp BP Sys/Yousif Pulse Ox Last 24 Hr 97.1 F-97.8 F 86-105 12-21 115-158/49-79 97-100 - Lab 05/07/17 02:35 05/07/17 02:35 Most recent lab results ABG pH 7.307 (7.35-7.45) L 05/07/17 07:30 ABG pCO2 32.5 MM HG (35-48) L 05/07/17 07:30 ABG pO2 142.0 MM HG (80-95) H 05/07/17 07:30 ABG HCO3 17.2 MMOL/L (20-26) L 05/07/17 07:30 ABG O2 Saturation 99.0 % (95-100) 05/07/17 07:30 Calcium 7.2 MG/DL (8.5-10.1) L 05/07/17 02:35 Phosphorus 2.9 MG/DL (2.5-4.9) 05/06/17 05:56 Magnesium 1.8 MG/DL (1.8-2.4) 05/06/17 05:56 Assessment and Plan (1) Acute kidney injury Status: Acute Assessment and plan: Patient likely has a ATN injury from sepsis and malperfusion. Her urine output is decreasing, I am going to add some acetate for her acidosis to her TPN. Current Visit: Yes (2) Acute abdomen Status: Acute Current Visit: Yes (3) Dehydration Status: Acute Current Visit: Yes (4) Severe sepsis Status: Acute Assessment and plan: Continue antibiotics Current Visit: Yes (5) Dementia Status: Chronic Current Visit: No (6) Diabetes mellitus Status: Chronic Current Visit: No Qualifiers: Diabetes mellitus type: type 2 (7) Hypertension Status: Chronic Current Visit: No Qualifiers: Hypertension type: essential hypertension Qualified Code(s): I10 - Essential (primary) hypertension
--- NOTE | 2017-05-07 10:32 | Gastrointestinal Progress Note ---
Assessment and Plan (1) PEG (percutaneous endoscopic gastrostomy) status Status: Acute Assessment and plan: 05/07-Post op day 3, no changes at present time. Plan and addendum to follow by Dr Brown. 05/06-postop day 2 exploratory lap. All pressure support. Continuing weaning trials. Plan an addendum to follow Dr. Brown. 05/05-findings noted as below. Postop day 1. Continue IV antibiotics. Continue to monitor at present time. Plan an addendum to follow Dr. Brown. 05/04-Admitted with sepsis, post PEG tube replacement on yesterday. Findings of fluroscopy of PEG not projecting into stomach, free spillage of contrast into peritoneal cavity. Tube feedings held. Plan and addendum to follow by Dr Brown. Current Visit: No Gastroenterology - PN: Subj Interval history: CC: Peritonitis Patient is seen, remaining on ventilator, with eyes open but does not follow commands. She is continued on her weaning trials at this time and if ABGs are improved on T tube she is for possible extubation later today due to family does not want long-term mechanical ventilation. She is continued on TPN at this time. Creatinine is up at 3.0 today. Abdomen is soft, nontender. ROS: Denies SOB or chest pain Exam (Progress Note) - Constitutional Vitals: Period Temp Pulse Resp BP Sys/Yousif Pulse Ox Last 24 Hr 97.1 F-97.8 F 86-105 12-21 115-158/49-79 97-100 - Other Additional findings: General appearance: normal weight, no acute distress - Head Head exam: Present: normal inspection, normocephalic - Eye Eye exam: Present: other (lids and conjunctiva unremarkable). Absent: scleral icterus - ENT ENT exam: Present: normal exam, normal oropharynx - Neck Neck exam: Present: normal inspection - Respiratory Respiratory exam: Present: clear to auscultation bilaterally. Absent: rales, rhonchi, wheezes - Cardiovascular Cardiovascular exam: Present: regular rate and rhythm. Absent: diastolic murmur , JVD, systolic murmur - GI/Abdominal GI/Abdominal exam: Present: normal bowel sounds, soft. Absent: ascites, distended, mass, organomegaly, tenderness - Extremities Exam Extremities exam: Present: normal inspection, full ROM - Back Exam Back exam: Present: normal inspection - Neurological Exam Neurological exam: Present: alert, altered - Psychiatric Psychiatric exam: Present: normal affect, normal mood - Skin Skin exam: Present: normal color, warm, dry Results - Labs CBC & BMP: 05/07/17 02:35 05/07/17 02:35 Lab Results: I have reviewed the past 24 hour labs
[2017-05-07 12:02] LABS: ABG HCO3 17.2 MMOL/L (20-26); ABG PCO2 33.6 MM HG (35-48); ABG PH 7.301 (7.35-7.45); ABG TCO2 15.3 MMOL/L (23-27)
[2017-05-07] MEDS ORDERED: hydrALAZINE 20 MG/1 ML VIAL IV PRN (12:09)
--- NOTE | 2017-05-07 12:29 | Hospitalist Progress Note ---
Assessment and Plan (1) Acute abdomen Status: Acute Assessment and plan: 1)S/P ex lap with partial gastrectomy to repair perforation of stomach- NG to suction. No tube feeds until ok with Dr Ramos. 2)sepsis- off pressors, BP high when moved, likely when she hurts more. adjust pain meds and monitor. cultures with 1/2 BCx with non MRSA GPC. stopped Vanc, continue Zosyn. Ucx negative 3)acute respiratory failure- on vent and may be extubated today 4)DM- on lantus 10 and SSI, glucoses remain in 190-250 range. increase lantus to 30U a day.Will need to decrease this when TPN decreased I suspect. 5)HTN- begin norvasc, hydralazine prn. 6)SKYLAR due to sepsis- creatinine up to 3.0- has not peaked yet. Due to AtN from sepsis. IVF rate decreased. 7)metabolic acidosis- acetate increased in TPN and in fluids, recheck in am. 8)hyperkalemia- resolved 9)dementia 10)ppx-on lovenox. plavix as home med. on ppi. 11)dispo- refer to LTAC. Current Visit: Yes (2) Pneumonia Status: Acute Current Visit: No (3) Atrial flutter Status: Acute Current Visit: No (4) Dementia Status: Chronic Current Visit: No (5) Severe sepsis Status: Acute Current Visit: Yes (6) UTI (urinary tract infection) Status: Acute Current Visit: Yes Hospitalist: Subjective Interval history: Mrs Tyson remains hemodynamically stable on the vent. She is doing t-tube trial and possible will be extubated today. Per family she did not want prolonged intubation-she has been DNR. Discussed disposition with Dr Allen- she will likely need LTAC for recovery after surgery, feeding her with NGT once that is ok with Dr Ramos, etc. Exam - Constitutional Vitals: Period Temp Pulse Resp BP Sys/Yousif Pulse Ox Last 24 Hr 97.1 F-97.8 F 86-105 12-20 115-158/49-79 97-100 General appearance: normal weight, no acute distress - Eye Eye exam: Present: EOMI. Absent: scleral icterus Pupils: Present: SANDI - Respiratory Respiratory exam: Present: clear to auscultation bilaterally - Cardiovascular Cardiovascular exam: Present: regular rate and rhythm - GI/Abdominal GI/Abdominal exam: Present: hypoactive bowel sounds, soft - Extremities Exam Extremities exam: Present: edema (puffiness in hands, thighs, no pitting edema) - Neurological Exam Neurological exam: Present: other (at baseline, does not speak move. opens eyes ot voice intermittently) - Skin Skin exam: Present: warm, dry Results - Labs CBC & BMP: 05/07/17 02:35 05/07/17 02:35 Lab Results: I have reviewed the past 24 hour labs
[2017-05-07] MEDS ORDERED: INSULIN GLARGINE 100 UNIT/ML SUBCUT SCH (12:32)
[2017-05-07] MEDS: amLODIPine 10 MG TABLET PO SCH (12:42)
[2017-05-07] MEDS: ENOXAPARIN 30 MG/0.3 ML SYRINGE SUBCUT SCH (12:42)
[2017-05-07] MEDS: SODIUM BICARB INJ 150 MEQ in DEXTROSE 5% 1,000 ML IV SCH (12:42)
--- NOTE | 2017-05-07 13:08 | Event Note ---
She appears stable and is on a T-piece and about to be extubated. She is hemodynamically stable. She is now 3 days out and I think we can start to drip some low rate tube feeds in her nasogastric tube
[2017-05-07] MEDS ORDERED: NITROGLYCERIN 2% OINT 1 INCH/GM PACK TOP ONE (16:07)
[2017-05-07] MEDS ORDERED: FUROSEMIDE 40 MG/4 ML VIAL IV ONE (16:08)
[2017-05-07] MEDS ORDERED: [UNRECOGNIZED DRUG - OTHER] IV SCH (17:00)
[2017-05-07] MEDS ORDERED: DEXTROSE 10% IV SCH (17:00)
[2017-05-07] MEDS ORDERED: AMINO ACIDS 10% IV SCH (17:00)
[2017-05-07] MEDS ORDERED: MULTIVITAMIN IV SCH (17:00)
[2017-05-07] MEDS ORDERED: TRACE ELEMENTS IV SCH (17:00)
[2017-05-07] MEDS ORDERED: INSULIN REGULAR IV SCH (17:00)
[2017-05-08 05:46] LABS: Calcium 7.8 MG/DL (8.5-10.1); Osmolality,Calculated 307.3 MOS/KG (273-304); Potassium 3.1 MMOL/L (3.5-5.1)
[2017-05-08] MEDS: INSULIN LISPRO 100 UNIT/ML SUBCUT SCH ×3 (06:14→18:12)
--- NOTE | 2017-05-08 07:11 | XRay Report ---
XR chest 1V portable Indication: Extubation. Chest one view: Since yesterday, endotracheal tube has been removed. NG tube position is stable. Lungs remain hypoinflated with continued hazy obscuration of both lung bases, especially on the left. Cardiomegaly is stable. Although likely from change in position, the aortic arch appears more prominent on the current examination. A CT angiogram of the carotid arteries from 2014 was referenced showing no aneurysmal change of the arch. Impression: Increased prominence of the aortic arch likely positional. Consider repeat radiograph. Extubation. Persistent atelectasis or pneumonia of the lung bases. PROCEDURE INTERPRETED AT [facility] DEPARTMENT OF RADIOLOGY Final Report Signed by: Kyle Lamas M.D.
--- NOTE | 2017-05-08 07:54 | Nephrology Progress Note ---
Nephrology - PN: Subj Interval history: Patient was extubated on yesterday. She has continued to have good urine output. Serum creatinine is 2.8 today. Hemodynamics have been acceptable. Exam (PN)-Nephrology - Vital Signs Vital signs: Period Temp Pulse Resp BP Sys/Yousif Pulse Ox Last 24 Hr 97.2 F-98.0 F 82-115 12-21 124-194/57-104 91-100 - General Appearance General appearance: well-developed, chronically ill EENT: ATNC Neck: supple Respiratory: rales (Bilaterally) Cardiology: no edema, regular rate, regular rhythm Gastrointestinal: normoactive bowel sounds Integumentary: no rash - Lab 05/07/17 02:35 05/08/17 05:02 Most recent lab results ABG pH 7.301 (7.35-7.45) L 05/07/17 11:50 ABG pCO2 33.6 MM HG (35-48) L 05/07/17 11:50 ABG pO2 111.0 MM HG (80-95) H 05/07/17 11:50 ABG HCO3 17.2 MMOL/L (20-26) L 05/07/17 11:50 ABG O2 Saturation 98.0 % (95-100) 05/07/17 11:50 Calcium 7.8 MG/DL (8.5-10.1) L 05/08/17 05:02 Phosphorus 2.9 MG/DL (2.5-4.9) 05/06/17 05:56 Magnesium 1.8 MG/DL (1.8-2.4) 05/06/17 05:56 Assessment and Plan (1) Hypertension Status: Chronic Current Visit: No Qualifiers: Hypertension type: essential hypertension Qualified Code(s): I10 - Essential (primary) hypertension (2) Diabetes mellitus Status: Chronic Current Visit: No Qualifiers: Diabetes mellitus type: type 2 Chronic kidney disease stage: stage 3 ( moderate) (3) Acute kidney injury Status: Acute Assessment and plan: Acute on chronic kidney disease. BMP in a.m. Current Visit: Yes
[2017-05-08] MEDS ORDERED: FUROSEMIDE 40 MG/4 ML VIAL IV ONE (09:30)
[2017-05-08] MEDS ORDERED: HYDROmorphone 2 MG/1 ML VIAL IV PRN (09:30)
[2017-05-08] MEDS: CLOPIDOGREL 75 MG TABLET PEG SCH (10:36)
[2017-05-08] MEDS: PANTOPRAZOLE 40 MG VIAL IV SCH (10:37)
[2017-05-08] MEDS: amLODIPine 10 MG TABLET PO SCH (10:37)
[2017-05-08] MEDS: POTASSIUM CHLORIDE 20 MEQ TABLET PO SCH ×2 (10:37→18:12)
[2017-05-08] MEDS: SIMVASTATIN 20 MG TABLET PEG SCH (10:37)
[2017-05-08] MEDS: PIPERACILLIN/TAZOBACTAM 3,375 MG in SODIUM CHLORIDE 0.9% 100 ML IV SCH ×2 (10:38→21:03)
[2017-05-08] MEDS: INSULIN GLARGINE 100 UNIT/ML SUBCUT SCH (10:47)
--- NOTE | 2017-05-08 11:19 | Event Note ---
She is stable. She is tolerating tube feeds and is afebrile with stable vital signs. Her abdomen appears benign. We will slowly advance her tube feed rate and I agree with discontinuing her TPN and transfer to the floor.
[2017-05-08] MEDS: ENOXAPARIN 30 MG/0.3 ML SYRINGE SUBCUT SCH (12:59)
[2017-05-08] MEDS: SODIUM BICARB INJ 150 MEQ in DEXTROSE 5% 1,000 ML IV SCH (12:59)
--- NOTE | 2017-05-08 13:34 | Pulmonology Progress Note ---
Pulmonary - PN: Subj Interval history: 82-year-old female admitted for severe sepsis due to PEG tube dislodgment and resultant peritonitis. Patient required mechanical ventilation briefly and was extubated successfully yesterday. She did well overnight without acute events. She is being transferred to the floor today. She is now DNR/DNI after extubation. Exam (Progress Note) - Constitutional Vitals: Period Temp Pulse Resp BP Sys/Yousif Pulse Ox Last 24 Hr 97.3 F-98.0 F 89-115 12-21 124-194/58-96 91-100 General appearance: normal weight - Head Head exam: Present: normal inspection - Eye Eye exam: Present: EOMI - Neck Neck exam: Present: normal inspection - Respiratory Respiratory exam: Present: rales (Bibasilar) - Cardiovascular Cardiovascular exam: Present: regular rate and rhythm - GI/Abdominal GI/Abdominal exam: Present: normal bowel sounds - Extremities Exam Extremities exam: Present: edema - Neurological Exam Neurological exam: Present: altered - Skin Skin exam: Present: normal color, warm, dry Results - Labs CBC & BMP: 05/07/17 02:35 05/08/17 05:02 - Diagnostic Findings Procedure: Chest x-ray: report reviewed by me Assessment and Plan (1) Respiratory failure following trauma and surgery Status: Acute Assessment and plan: Patient now extubated and doing well. She is DNR/DNI per previous discussions. Continue to monitor respiratory status. Current Visit: Yes (2) Acute kidney injury Status: Acute Assessment and plan: Slowly improving with good urine output. Nephrology following. Current Visit: Yes (3) Severe sepsis Status: Acute Assessment and plan: Improving Current Visit: Yes (4) Acute abdomen Status: Acute Assessment and plan: Status post laparotomy for dislodged PEG tube with feedings in the peritoneal space and doing well. Current Visit: Yes
--- NOTE | 2017-05-08 14:00 | Hospitalist Progress Note ---
Assessment and Plan (1) Acute abdomen Status: Acute Assessment and plan: 1)low potassium- replace adn recheck in am. 2)resp failure- doing ok off vent, requires frequent suctioning. repeat lasix as it sounds like she may have some pulmonary edema after sepsis resuscitation. 3)sepsis- resolved. BCx with 1/2 bottles with staph haemolyticus- likely contaminant. repeat BCX today. 4)DM- I decreased lantus dose to 15- half of previous because the TPN will stop this evening. At [place] was on BID NPH with SSI. 5)HTN_ on norvasc and hydralazine. restart her clonidine also. holding MARCELO because of renal failure- might resume when creatinine at baseline. 6)SKYLAR due to sepsis- resolving slowly. monitor. 7)metabolic acidosis- improving, continue bicarb drip per renal. 8)dementia 9)ppx- on lovenox and PPI. plavix is a home med. 10)dispo- referred to LTAC. 11)DNR Current Visit: Yes (2) Pneumonia Status: Acute Current Visit: No (3) Atrial flutter Status: Acute Current Visit: No (4) Dementia Status: Chronic Current Visit: No (5) Severe sepsis Status: Acute Current Visit: Yes (6) UTI (urinary tract infection) Status: Acute Current Visit: Yes Hospitalist: Subjective Interval history: She is doing well off vent with far fewer rhonchi and requiring less frequent suctioning. She had good response to nitro paste and lasix given yesterday with good UOP and decrease in creatinine this morning. Liquid stool this morning sent for cdiff. Tube feeds started yesterday and she is tolerating so we will stop TPN, decrease lantus. Will transfer to the floor. Exam - Constitutional Vitals: Period Temp Pulse Resp BP Sys/Yousif Pulse Ox Last 24 Hr 97.3 F-98.0 F 89-115 12-21 124-194/58-96 91-100 General appearance: normal weight, no acute distress - Eye Eye exam: Present: EOMI. Absent: scleral icterus Pupils: Present: SANDI - Respiratory Respiratory exam: Present: rales, rhonchi. Absent: wheezes - Cardiovascular Cardiovascular exam: Present: regular rate and rhythm - GI/Abdominal GI/Abdominal exam: Present: normal bowel sounds, soft - Extremities Exam Extremities exam: Present: edema (much less edema today though some at knees, hands particularly.) Results - Labs CBC & BMP: 05/07/17 02:35 05/08/17 05:02 Lab Results: I have reviewed the past 24 hour labs
[2017-05-08] MEDS ORDERED: cloNIDine 0.2 MG/24 HR PATCH TRANSDERM SCH (14:30)
[2017-05-08] MEDS ORDERED: [UNRECOGNIZED DRUG - OTHER] IV SCH (17:00)
[2017-05-08] MEDS ORDERED: MULTIVITAMIN IV SCH (17:00)
[2017-05-08] MEDS ORDERED: TRACE ELEMENTS IV SCH (17:00)
[2017-05-08] MEDS ORDERED: ELECTROLYTE IV SCH (17:00)
[2017-05-08] MEDS ORDERED: POTASSIUM CHLORIDE 20 MEQ TABLET PO ONE (18:00)
[2017-05-09] MEDS: INSULIN LISPRO 100 UNIT/ML SUBCUT SCH ×5 (00:02→23:55)
[2017-05-09 07:13] LABS: Potassium 4.4 MMOL/L (3.5-5.1)
--- NOTE | 2017-05-09 09:01 | Nephrology Progress Note ---
Nephrology - PN: Subj Interval history: The patient is resting she is more alert today. Serum creatinine noted to be 3.1. Hemodynamics are stable. Exam (PN)-Nephrology - Vital Signs Vital signs: Period Temp Pulse Resp BP Sys/Yousif Pulse Ox Last 24 Hr 96.9 F-98.8 F 98-108 14-22 105-169/58-79 95-100 - General Appearance General appearance: chronically ill EENT: ATNC Neck: supple Respiratory: rales (Bilaterally) Cardiology: regular rate, regular rhythm Gastrointestinal: normoactive bowel sounds, no tenderness Integumentary: no rash - Lab 05/07/17 02:35 05/09/17 06:19 Most recent lab results ABG pH 7.301 (7.35-7.45) L 05/07/17 11:50 ABG pCO2 33.6 MM HG (35-48) L 05/07/17 11:50 ABG pO2 111.0 MM HG (80-95) H 05/07/17 11:50 ABG HCO3 17.2 MMOL/L (20-26) L 05/07/17 11:50 ABG O2 Saturation 98.0 % (95-100) 05/07/17 11:50 Calcium 8.0 MG/DL (8.5-10.1) L 05/09/17 06:19 Phosphorus 2.9 MG/DL (2.5-4.9) 05/06/17 05:56 Magnesium 1.8 MG/DL (1.8-2.4) 05/06/17 05:56 Assessment and Plan (1) Hypertension Status: Chronic Current Visit: No Qualifiers: Hypertension type: essential hypertension Qualified Code(s): I10 - Essential (primary) hypertension (2) Diabetes mellitus Status: Chronic Current Visit: No Qualifiers: Diabetes mellitus type: type 2 Chronic kidney disease stage: stage 3 ( moderate) (3) Acute kidney injury Status: Acute Assessment and plan: Acute on chronic kidney disease. BMP in a.m. Avoid nephrotoxic agents. Continue to follow. Current Visit: Yes
[2017-05-09] MEDS: amLODIPine 10 MG TABLET PO SCH (09:45)
[2017-05-09] MEDS: SIMVASTATIN 20 MG TABLET PEG SCH (09:45)
[2017-05-09] MEDS: CLOPIDOGREL 75 MG TABLET PEG SCH (09:45)
[2017-05-09] MEDS: PANTOPRAZOLE 40 MG VIAL IV SCH (09:45)
[2017-05-09] MEDS: INSULIN GLARGINE 100 UNIT/ML SUBCUT SCH (09:45)
--- NOTE | 2017-05-09 10:17 | Hospitalist Progress Note ---
Assessment and Plan - Time spent with patient Time spent with patient: Greater than 30 minutes (1) Severe sepsis Status: Acute Assessment and plan: Secondary to peritonitis. Resolved. Will continue antibiotics. Current Visit: Yes (2) Respiratory failure following trauma and surgery Status: Acute Assessment and plan: Extubated and doing well. Pulmonary is following appreciate their assistance. Current Visit: Yes (3) Acute kidney injury Status: Acute Assessment and plan: Nephrology is following. Creatinine is slowly rising. Current Visit: Yes (4) Diabetes mellitus Status: Chronic Assessment and plan: No Accu-Cheks and sliding scales insulins Current Visit: No Qualifiers: Diabetes mellitus type: type 2 Chronic kidney disease stage: stage 3 ( moderate) (5) Dementia Status: Chronic Assessment and plan: Supportive care. Current Visit: No (6) Anemia Status: Acute Assessment and plan: We will check tomorrow. Current Visit: Yes Hospitalist: Subjective Interval history: Ms. Tyson is an 82-year-old female who was transferred from the intensive care unit where she had a brief stay for sepsis. Sepsis was secondary to peritonitis due to dislodged PEG tube and dissemination of gastric feedings. She was taken to the OR for ex-lap with cleaning. She remained on the vent and was extubated recently. She was initially managed with TPN and switched to nasogastric feeding. She is tolerating current NG tube feeding very well. Patient appears to suffer from dementia and is unable to provide me with any history. Exam - Constitutional Vitals: Period Temp Pulse Resp BP Sys/Yousif Pulse Ox Last 24 Hr 96.9 F-98.8 F 100-108 14-22 105-169/58-79 95-100 General appearance: no acute distress - Head Head exam: Present: normocephalic, atraumatic - Eye Pupils: Present: SANDI - ENT ENT exam: Present: normal exam - Neck Neck exam: Present: normal inspection - Respiratory Respiratory exam: Present: clear to auscultation bilaterally. Absent: rhonchi, wheezes - Cardiovascular Cardiovascular exam: Present: regular rate and rhythm. Absent: gallop, rubs, systolic murmur - GI/Abdominal GI/Abdominal exam: Present: normal bowel sounds, soft, other (Midline incision stapled, clean clear and intact. No PEG tube currently.). Absent: distended, firm, guarding, tenderness, rebound - Extremities Exam Extremities exam: Present: normal inspection. Absent: calf tenderness, edema Results - Labs CBC & BMP: 05/07/17 02:35 05/09/17 06:19 Lab Results: I have reviewed the past 24 hour labs
--- NOTE | 2017-05-09 10:26 | Event Note ---
She is tolerating a higher rate of tube feed. I think it is fine to have her off of TPN. We can probably gradually increase her rate. Her abdomen appears benign. She is afebrile.
[2017-05-09] MEDS: PIPERACILLIN/TAZOBACTAM 3,375 MG in SODIUM CHLORIDE 0.9% 100 ML IV SCH ×2 (10:49→20:28)
[2017-05-09] MEDS: ENOXAPARIN 30 MG/0.3 ML SYRINGE SUBCUT SCH (10:49)
--- NOTE | 2017-05-09 14:21 | Operative Note ---
Date of procedure: 05/09/17 Pre-op diagnosis: Sepsis Post-op diagnosis: same Procedure: Right internal jugular vein double-lumen central venous catheter under ultrasound guidance Findings and technique: After informed consent was obtained from the family by the nurses I then attempted to speak with the family but they had left the hospital. We need to have central access in this patient so I elected to go ahead and proceed with this patient who we have been delaying IV access on for several hours trying to get consent from the family. She was brought down to the recovery room area where with her in little bit of Trendelenburg her neck was prepped and draped in usual sterile fashion. Full barrier drapes were used. Sterile ultrasound probe was placed over the right neck where the internal jugular vein was easily identified and accessed with a single stick and a guidewire advanced without resistance. A dilator was passed over the guidewire and the catheter advanced over the guidewire and the guidewire removed. The catheter was easily accessed and aspirated and flushed. The catheter was sutured into place. A chest x-ray was pending. Anesthesia: local Surgeon / Physician: Mushtaq Godwin III. Estimated blood loss: none Specimens: none sent Condition: stable Disposition: floor Results - Labs CBC & BMP: 05/07/17 02:35 05/09/17 06:19 Discharge Plan - Discharge Medications No Action Donepezil HCl 20 mg PEG DAILY Simvastatin [Zocor] 20 mg PEG DAILY Insulin NPH [HumuLIN N] 10 unit SUBCUT BID Clopidogrel [Plavix] 75 mg PEG DAILY cloNIDine 0.2 MG/24 HR PATCH [Pdrstogq-XJI-4 Patch] 1 patch TRANSDERM TU Trazodone HCl 100 mg PEG BEDTIME Albuterol/Ipratropium Neb [Duoneb] 3 ml RESP TX RT Q6H PRN #0 PRN Reason: Shortness Of Breath/Wheezing Cetirizine HCl [Cetirizine Tab] 10 mg PO DAILY Lisinopril [Prinivil] 20 mg PEG DAILY Insulin Regular, Human [NovoLIN R] 0 - 15 unit SUBCUT ACHS amLODIPine [Norvasc] 5 mg PO DAILY - Follow Up or Referral - Forms/Instructions
--- NOTE | 2017-05-09 15:01 | XRay Report ---
XR chest 1V portable Indication: Central line placement. Chest one view: Since yesterday, right IJ central line has been placed, tip in the high right atrium. No pneumothorax shown. Lung volumes remain low with persistent obscuration of the lung bases. Cardiomegaly, tortuous thoracic aorta and NG tube are stable as well. Impression: Central line as described. PROCEDURE INTERPRETED AT [facility] DEPARTMENT OF RADIOLOGY Final Report Signed by: Kyle Lamas M.D.
[2017-05-09] MEDS: SODIUM BICARB INJ 150 MEQ in DEXTROSE 5% 1,000 ML IV SCH (17:39)
[2017-05-10] MEDS: INSULIN LISPRO 100 UNIT/ML SUBCUT SCH ×3 (05:57→18:32)
[2017-05-10 06:22] LABS: Magnesium 1.9 MG/DL (1.8-2.4); Phosphorous 2.1 MG/DL (2.5-4.9)
--- NOTE | 2017-05-10 08:20 | Pulmonology Progress Note ---
Pulmonary - PN: Subj Interval history: Patient is sedated on the ventilator and has no new complaints. Urine output has been low. She has required fluid boluses. ABGs acceptable. We are hyperventilating her to have correct the metabolic acidosis. 05/06/17 sedation is being held. Patient is tolerating CPAP trials. Chest x- ray shows some basilar atelectasis unchanged from before. We will see if we can get her extubated this morning 05/07/2017 patient's ABGs acceptable except for metabolic acidosis. Creatinine is up to 3.0. Urine output is marginal. She will not be able to do mechanics. Will check ABGs on a T-tube. If those are acceptable will go ahead with extubation today. Family does not want long-term mechanical ventilation. 05/10/2017 patient stable postextubation. Oxygen saturation in upper 90s with low flow nasal oxygen. She does still have a poor cough and some congestion. Little to add at this point. I will sign off. Please call if needed further. Exam (Progress Note) - Constitutional Vitals: Period Temp Pulse Resp BP Sys/Yousif Pulse Ox Last 24 Hr 96.5 F-99 F 61-101 18-22 101-137/50-69 93-100 Exam: Patient poorly responsive vital signs normal. Pupils reactive eyes prominent. Arcus senilis. On nasal oxygen now. Neck supple no bruits. Chest reveals a few basilar rhonchi. Heart rapid rate normal rhythm. Abdomen soft bandaged no bowel sounds. Extremities no clubbing cyanosis edema. Results - Labs CBC & BMP: 05/07/17 02:35 05/09/17 06:19 Lab Results: I have reviewed the past 24 hour labs - Diagnostic Findings Procedure: Chest x-ray: image reviewed by me (Yesterday's chest x-ray shows mild bibasilar atelectasis. Otherwise little change from before.) Assessment and Plan (1) Respiratory failure following trauma and surgery Status: Acute Assessment and plan: Patient is on the ventilator following laparotomy. She had vomiting and may well have aspirated. She had a her PEG tube draining feeding solution into the peritoneum. It is been removed and this is been placed under drainage. ABG show metabolic acidosis. Will step up mechanical ventilation a little. She is getting some bicarb. Her prognosis is poor. 05/05/2017 ABGs okay except for metabolic acidosis. This will need to be corrected before she can be extubated. Low urine output. Getting fluid challenges. 05/06/2017 patient did tolerate CPAP yesterday. We will try to get her extubated this morning. Mental status will not allow to check mechanics. 05/07/2017 patient tolerating CPAP. Will do a T-tube trial and hope to extubate this morning. She is a DO NOT RESUSCITATE per previous discussion 05/10/2017 patient doing well with nasal oxygen. Cough is poor. No plans for reintubation. Current Visit: Yes (2) Severe sepsis Status: Acute Assessment and plan: Broad-spectrum antibiotics. Fluid resuscitation. Blood pressure stable at present. She still has some metabolic acidosis. creatinine has risen to 2.0 05/05/2017 blood pressure looks a little better. Creatinine up to 2.6. 05/06/2017 sepsis better control. 05/07/2017 this is better. However she does have acute kidney injury and metabolic acidosis. 05/10/2017 this is under control. Current Visit: Yes (3) Acute abdomen Status: Acute Assessment and plan: Status post laparotomy. PEG tube had dislodged from the stomach 05/07/2017 status post laparotomy for a dislodged PEG tube with feedings in the peritoneal space. 05/10/2017 status post laparotomy. Current Visit: Yes (4) Dementia Status: Chronic Assessment and plan: Patient had underlying dementia and previous stroke. Family will make a decision in a day or 2 as far as how long to support her. 05/05/2017 family relates that she does not interact usually. She will just look around and move a little. That is what she is doing now. 05/06/2017 pre-existing severe dementia. 05/07/2017 patient has severe dementia. 05/10/2017 has severe dementia. Current Visit: No (5) Acute kidney injury Status: Acute Assessment and plan: Creatinine is rising and urine output following. Agree with IV fluids. 05/06/2017 labs pending today. 05/07/2017 creatinine up to 3.0. She is making urine. Hopefully we will see this improve in the next couple of days. 05/10/2017 creatinine is 3.1. Fairly stable. Current Visit: Yes
--- NOTE | 2017-05-10 09:13 | Gastrointestinal Progress Note ---
Assessment and Plan (1) PEG (percutaneous endoscopic gastrostomy) status Status: Acute Assessment and plan: 05/10-Post op day 6, post extubation. TPN stopped. Tolerating tube feedings via NG. Plan and addendum to follow by Dr Brown. 05/07-Post op day 3, no changes at present time. Plan and addendum to follow by Dr Brown. 05/06-postop day 2 exploratory lap. All pressure support. Continuing weaning trials. Plan an addendum to follow Dr. Brown. 05/05-findings noted as below. Postop day 1. Continue IV antibiotics. Continue to monitor at present time. Plan an addendum to follow Dr. Brown. 05/04-Admitted with sepsis, post PEG tube replacement on yesterday. Findings of fluroscopy of PEG not projecting into stomach, free spillage of contrast into peritoneal cavity. Tube feedings held. Plan and addendum to follow by Dr Brown. Current Visit: No Gastroenterology - PN: Subj Interval history: CC: Peritonitis Pt is seen, awake, eyes open, but doesnt follow commands. She is post extubation and has been transitioned over the weekend from TPN now to nasogastric feedings and is tolerating these well at this time. Abdomen is soft , nontender. She is noted to have bowel movements as well which were negative for clostridium difficle. No family in room during visit. ROS: Denies SOB or chest pain Exam (Progress Note) - Constitutional Vitals: Period Temp Pulse Resp BP Sys/Yousif Pulse Ox Last 24 Hr 96.5 F-99 F 61-101 18-22 101-137/50-69 93-100 General appearance: normal weight, no acute distress - Head Head exam: Present: normal inspection, normocephalic - Eye Eye exam: Present: other (lids and conjunctiva unremarkable). Absent: scleral icterus - ENT ENT exam: Present: normal exam, normal oropharynx - Neck Neck exam: Present: normal inspection - Respiratory Respiratory exam: Present: clear to auscultation bilaterally. Absent: rales, rhonchi, wheezes - Cardiovascular Cardiovascular exam: Present: regular rate and rhythm. Absent: diastolic murmur , JVD, systolic murmur - GI/Abdominal GI/Abdominal exam: Present: normal bowel sounds, soft. Absent: ascites, distended, mass, organomegaly, tenderness - Extremities Exam Extremities exam: Present: normal inspection - Back Exam Back exam: Present: normal inspection - Neurological Exam Neurological exam: Present: alert, altered - Psychiatric Psychiatric exam: Present: other - Skin Skin exam: Present: normal color, warm, dry Results - Labs CBC & BMP: 05/07/17 02:35 05/09/17 06:19 Lab Results: I have reviewed the past 24 hour labs
[2017-05-10] MEDS: INSULIN GLARGINE 100 UNIT/ML SUBCUT SCH (09:27)
[2017-05-10] MEDS: CLOPIDOGREL 75 MG TABLET PEG SCH (09:27)
[2017-05-10] MEDS: PANTOPRAZOLE 40 MG VIAL IV SCH (09:27)
[2017-05-10] MEDS: SIMVASTATIN 20 MG TABLET PEG SCH (09:27)
[2017-05-10] MEDS: PIPERACILLIN/TAZOBACTAM 3,375 MG in SODIUM CHLORIDE 0.9% 100 ML IV SCH ×2 (09:27→20:38)
[2017-05-10] MEDS: amLODIPine 10 MG TABLET PO SCH (09:27)
--- NOTE | 2017-05-10 09:35 | Event Note ---
She has no complaints. She is tolerating tube feeds. Her abdomen looks good and her wound looks good with no signs of infection. I placed a central line yesterday. Her chest x-ray showed no pneumothorax.
[2017-05-10] MEDS: SODIUM BICARB INJ 150 MEQ in DEXTROSE 5% 1,000 ML IV SCH (09:42)
[2017-05-10] MEDS: ENOXAPARIN 30 MG/0.3 ML SYRINGE SUBCUT SCH (11:31)
--- NOTE | 2017-05-10 11:54 | Hospitalist Progress Note ---
Assessment and Plan - Time spent with patient Time spent with patient: Greater than 30 minutes (1) Severe sepsis Status: Acute Assessment and plan: Secondary to peritonitis. Resolved. Will continue antibiotics. Current Visit: Yes (2) Respiratory failure following trauma and surgery Status: Acute Assessment and plan: Extubated and doing well. Pulmonary is following appreciate their assistance. Current Visit: Yes (3) Acute kidney injury Status: Acute Assessment and plan: Nephrology is following. Creatinine/BUN is slowly rising. Current Visit: Yes (4) Diabetes mellitus Status: Chronic Assessment and plan: No Accu-Cheks and sliding scales insulins Current Visit: No Qualifiers: Diabetes mellitus type: type 2 Chronic kidney disease stage: stage 3 ( moderate) (5) Dementia Status: Chronic Assessment and plan: Supportive care. Current Visit: No (6) Anemia Status: Acute Assessment and plan: We will check tomorrow. Current Visit: Yes Hospitalist: Subjective Interval history: Central Line placed yesterday for difficult/lack of IV access. Exam - Constitutional Vitals: Period Temp Pulse Resp BP Sys/Yousif Pulse Ox Last 24 Hr 97.3 F-99 F 61-105 20-22 101-137/50-69 93-100 General appearance: no acute distress - Head Head exam: Present: normocephalic, atraumatic - ENT ENT exam: Present: normal exam - Neck Neck exam: Present: normal inspection - Respiratory Respiratory exam: Present: clear to auscultation bilaterally. Absent: rhonchi, wheezes - Cardiovascular Cardiovascular exam: Present: regular rate and rhythm. Absent: gallop, rubs, systolic murmur - GI/Abdominal GI/Abdominal exam: Present: normal bowel sounds, soft. Absent: distended, firm , guarding, tenderness, rebound - Extremities Exam Extremities exam: Present: normal inspection. Absent: calf tenderness, edema Results - Labs CBC & BMP: 05/07/17 02:35 05/09/17 06:19 Lab Results: I have reviewed the past 24 hour labs
--- NOTE | 2017-05-10 13:59 | Nephrology Progress Note ---
Nephrology - PN: Subj Interval history: Patient is resting no acute changes. Exam (PN)-Nephrology - Vital Signs Vital signs: Period Temp Pulse Resp BP Sys/Yousif Pulse Ox Last 24 Hr 97.3 F-99 F 61-105 20-22 101-137/50-69 93-100 - General Appearance General appearance: well-developed, fatigue, frail EENT: ATNC Neck: supple Respiratory: clear Cardiology: regular rate, regular rhythm Gastrointestinal: normoactive bowel sounds, no tenderness Integumentary: no rash - Lab 05/07/17 02:35 05/09/17 06:19 Most recent lab results ABG pH 7.301 (7.35-7.45) L 05/07/17 11:50 ABG pCO2 33.6 MM HG (35-48) L 05/07/17 11:50 ABG pO2 111.0 MM HG (80-95) H 05/07/17 11:50 ABG HCO3 17.2 MMOL/L (20-26) L 05/07/17 11:50 ABG O2 Saturation 98.0 % (95-100) 05/07/17 11:50 Calcium 8.0 MG/DL (8.5-10.1) L 05/09/17 06:19 Phosphorus 2.1 MG/DL (2.5-4.9) L 05/10/17 05:17 Magnesium 1.9 MG/DL (1.8-2.4) 05/10/17 05:17 Assessment and Plan (1) Hypertension Status: Chronic Current Visit: No Qualifiers: Hypertension type: essential hypertension Qualified Code(s): I10 - Essential (primary) hypertension (2) Diabetes mellitus Status: Chronic Current Visit: No Qualifiers: Diabetes mellitus type: type 2 Chronic kidney disease stage: stage 3 ( moderate) (3) Acute kidney injury Status: Acute Assessment and plan: Acute on chronic kidney disease. Avoid nephrotoxic agents. Continue to follow. Current Visit: Yes
[2017-05-11] MEDS: INSULIN LISPRO 100 UNIT/ML SUBCUT SCH ×3 (00:25→11:15)
[2017-05-11 06:28] LABS: Basophils % 0.2 % (0.0-0.8); Eosinophils % 0.1 % (0.00-10.9); Hematocrit 30.6 VOL% (35.7-47.0); Hemoglobin 10.6 GM/DL (12.0-16.0); Immature Granulocytes % 2.8 %; Immature Granulocytes Absolute 0.43 #; Lymphocytes # 0.9 10*3/uL (1.4-4.0); Lymphocytes % 6.1 % (21.3-54.2); Mean Corpuscular HGB Conc 34.6 GM/DL (32-36); Mean Corpuscular Hemoglobin 29 PG (27-34); Mean Corpuscular Volume 83.2 FL (87-102); Mean Platelet Volume 12.5 FL (9.6-12.0); Monocytes # 1.1 10*3/uL (0.11-0.8); Monocytes % 7.1 % (1.7-12.7); NRBC # 0.02 10*3/uL; Neutrophils # 12.7 10*3/uL (1.4-7.4); Neutrophils % 83.7 % (38.7-73.9); Platelet Count 135 T/CUMM (130-400); Red Blood Count 3.68 MC/CUMM (3.8-5.5); Red Cell Distribution Width 15.7 % (9.3-17.3); White Blood Count 15.2 T/CUMM (4-12)
[2017-05-11 06:47] LABS: Band Neutrophils 3 % (0-10); Eosinophils 1 % (0-10); Lymphocytes 5 % (20-55); Platelet Estimate Normal; Segmented Neutrophils 83 % (50-85); Total Cells Counted 100
[2017-05-11 06:48] LABS: Hypochromasia 1+; Microcytosis 1+
[2017-05-11] MEDS: INSULIN GLARGINE 100 UNIT/ML SUBCUT SCH (08:31)
[2017-05-11] MEDS: PIPERACILLIN/TAZOBACTAM 3,375 MG in SODIUM CHLORIDE 0.9% 100 ML IV SCH (08:31)
[2017-05-11] MEDS: PANTOPRAZOLE 40 MG VIAL IV SCH (08:32)
[2017-05-11] MEDS: amLODIPine 10 MG TABLET PO SCH (08:32)
[2017-05-11] MEDS: SIMVASTATIN 20 MG TABLET PEG SCH (08:32)
[2017-05-11] MEDS: CLOPIDOGREL 75 MG TABLET PEG SCH (08:32)
[2017-05-11] MEDS: SODIUM BICARB INJ 150 MEQ in DEXTROSE 5% 1,000 ML IV SCH (09:27)
--- NOTE | 2017-05-11 10:00 | Discharge Summary ---
Hospital Course - Hospital Course Hospital Course: Ms. Tyson is an 82-year-old female who has a history of CVA, dementia, PEG tube and is bedbound presented from her residential to the ER with diaphoresis, tachycardia, shallow respirations and cold extremities. Patient was seen in the ER earlier the day of admission for replacement of her feeding tube as it was found to be dislodged at her residential. She was admitted to the intensive care unit on broad-spectrum antibiotics and blood pressure support after it was determined she was in severe sepsis. Gastroenterology was consulted who determined the PEG tube was not projecting into the stomach based on the findings of fluoroscopy. There was spillage of contrast into the peritoneal cavity. Surgery was consulted. Surgery performed exploratory laparotomy and had her peritoneal cavity cleaned out. She remained intubated on the ventilator post laparotomy. Nutrition was obtained through TPN. Pulmonary managed ventilator settings while the patient was in the intensive care unit. It was noted that the patient's creatinine began to rise from 1.8 on admission to 2.8 with reduced urine output. Nephrotoxic medications were withheld during this time. Nephrology was consulted for assistance. Once the patient was successfully extubated she was transferred to the floor. The patient continues to require IV Zosyn and had a right internal jugular vein catheter placed. Creatinine remained stable at around 3 at time of discharge. Patient was hemodynamically stable and was evaluated by social work for placement at [facility] where she was accepted. I spent 45 minutes coordinating this discharge. - Time spent with patient Time with patient DS: Greater than 30 minutes Diagnosis - Discharge Diagnosis (1) Severe sepsis Status: Acute (2) Respiratory failure following trauma and surgery Status: Acute (3) Acute kidney injury Status: Acute (4) Diabetes mellitus Status: Chronic (5) Dementia Status: Chronic (6) Anemia Status: Acute Discharge Plan - Discharge Data Disposition: Disch/Xfer to Residential Hos Condition at Discharge: Stable - Discharge Medications New Enoxaparin [Lovenox] 30 mg SUBCUT Q24H syringe Insulin Glargine [Lantus] 15 unit SUBCUT DAILY unit Piperacillin/Tazobactam [Zosyn] 3,375 mg IV Q12HR vial Sodium Bicarb Inj 150 meq IV .Q24H vial amLODIPine [Norvasc] 10 mg PO DAILY tablet cloNIDine 0.2 MG/24 HR PATCH [Udypgcyv-GRB-9 Patch] 1 patch TRANSDERM Q7DAY patch Continue Donepezil HCl 20 mg PEG DAILY Simvastatin [Zocor] 20 mg PEG DAILY Clopidogrel [Plavix] 75 mg PEG DAILY Discontinued Insulin NPH [HumuLIN N] 10 unit SUBCUT BID cloNIDine 0.2 MG/24 HR PATCH [Dpuoqkel-ZER-9 Patch] 1 patch TRANSDERM TU Trazodone HCl 100 mg PEG BEDTIME Albuterol/Ipratropium Neb [Duoneb] 3 ml RESP TX RT Q6H PRN #0 PRN Reason: Shortness Of Breath/Wheezing Cetirizine HCl [Cetirizine Tab] 10 mg PO DAILY Lisinopril [Prinivil] 20 mg PEG DAILY Insulin Regular, Human [NovoLIN R] 0 - 15 unit SUBCUT ACHS amLODIPine [Norvasc] 5 mg PO DAILY - Follow Up or Referral - Forms/Instructions Exam - Constitutional Vitals: Period Temp Pulse Resp BP Sys/Yousif Pulse Ox Last 24 Hr 97.3 F-98.1 F 84-109 18-22 115-149/50-75 94-100 General appearance: normal weight, no acute distress - Head Head exam: Present: normal inspection, normocephalic, atraumatic - ENT ENT exam: Present: normal exam - Neck Neck exam: Present: normal inspection - Respiratory Respiratory exam: Present: clear to auscultation bilaterally. Absent: accessory muscle use, prolonged expiratory phase, wheezes - Cardiovascular Cardiovascular exam: Present: regular rate and rhythm. Absent: bradycardia, irregular rhythm, systolic murmur - GI/Abdominal GI/Abdominal exam: Present: normal bowel sounds, other (Midline incision clean clear intact). Absent: ascites, distended, hypoactive bowel sounds, tenderness - Extremities Exam Extremities exam: Present: normal inspection - Neurological Exam Neurological exam: Present: other (Minimally responsive, baseline). Absent: alert, oriented X3 Discharge Results Procedures and tests throughout hospitalization: Pending Orders 05/08/17 14:32 Blood Culture Stat Labs on day of discharge: Labs from last 24 hours 05/11/17 05/11/17 05/10/17 06:03 06:00 23:49 WBC 15.2 H RBC 3.68 L Hgb 10.6 L Hct 30.6 L MCV 83.2 L MCH 29 MCHC 34.6 RDW 15.7 Plt Count 135 MPV 12.5 H Neut % (Auto) 83.7 H Lymph % (Auto) 6.1 L [place] % (Auto) 7.1 Eos % (Auto) 0.1 Baso % (Auto) 0.2 Neut # (Auto) 12.7 H Lymph # (Auto) 0.9 L [place] # (Auto) 1.1 H Eos # (Auto) 0.0 Baso # (Auto) 0.0 Total Counted 100 Immature Gran % 2.8 Nucleated RBC % 0.1 Immature Gran # 0.43 Segmented Neutrophils 83 Band Neutrophils 3 Lymphocytes 5 L Monocytes 8 Eosinophils 1 Nucleated RBCs # 0.02 Platelet Estimate Normal Hypochromasia 1+ Microcytosis 1+ Morphology Comment POC Glucose 244 H 283 H 05/10/17 05/10/17 18:29 11:08 WBC RBC Hgb Hct MCV MCH MCHC RDW Plt Count MPV Neut % (Auto) Lymph % (Auto) [place] % (Auto) Eos % (Auto) Baso % (Auto) Neut # (Auto) Lymph # (Auto) [place] # (Auto) Eos # (Auto) Baso # (Auto) Total Counted Immature Gran % Nucleated RBC % Immature Gran # Segmented Neutrophils Band Neutrophils Lymphocytes Monocytes Eosinophils Nucleated RBCs # Platelet Estimate Hypochromasia Microcytosis Morphology Comment POC Glucose 199 H 164 H Preliminary micro results at discharge 05/08/17 14:32 Blood Culture - Preliminary Blood No growth at 1 day 05/08/17 14:32 Blood Culture - Preliminary Blood No growth at 1 day DS: Provider Date of admission: 05/04/17 01:16 Primary care physician: . No PCP Attending physician on admission: Shane Hardy MD Consults: 05/04/17 00:56 Consult to Dietitian [CONS] Routine Reason for Dietitian: TF-Initiate/Manage 05/04/17 08:45 Consult to Physician [CONS] Routine Comment: sepsis, recent peg tube replaced Consulting Provider: Prakash Brown Consult to Specialist Group: Gastroenterology Person Notified: dr brown [facility] Date Notified: 05/04/17 Time Notified: 09:59 05/04/17 11:22 Consult to Physician [CONS] Routine Comment: Consulting Provider: Dayne Watts Consult to Specialist Group: Surgery 05/04/17 13:40 Consult to Physician [CONS] Routine Comment: vent Consulting Provider: Roly Allen Consult to Specialist Group: Pulmonology When should Consulting Provider be notified: Now Person Notified: Ching Date Notified: 05/04/17 Time Notified: 14:50 05/05/17 11:25 Consult to Dietitian [CONS] Routine Reason for Dietitian: TPN/PPN-Initiate/Manage 05/05/17 15:57 Consult to Physician [CONS] Routine Comment: low UOP, SKYLAR, sepsis Consulting Provider: Kyle Ramírez Consult to Specialist Group: Nephrology When should Consulting Provider be notified: Now Person Notified: left voicemail for leela Date Notified: 05/06/17 Time Notified: 08:55 Consult Notification Comment: clinic called back verified consult info @ 1030 05/0605/06/17 14:35 Consult to Pharmacy [CONS] Routine Reason for Pharmacy Consult: Other Comment: Add 50 meq of sodium acetate to each liter of TPN starting with next bag. 05/07/17 09:02 Consult to Case Mgmt/Social Srvs [CONS] Routine Reason for Case Mgmt/Social Srvs: LTAC Consult Comment: FOR 1ST OF NEXT WEEK POSSIBLY 05/07/17 10:12 Consult to Pharmacy [CONS] Routine Reason for Pharmacy Consult: Other Comment: increase sodium acetate to 100 meq/liter starting with next bag of TPN 05/07/17 13:22 Consult to Dietitian [CONS] Routine Reason for Dietitian: TF-Initiate/Manage Consult Comment: begin with rate of 20ml/hr 05/09/17 11:04 Consult to Physician [CONS] Routine Comment: central line placement Consulting Provider: Mushtaq Godwin III. Person Notified: Dr. Godwin Date Notified: 05/09/17 Time Notified: 11:10 Discharging clinician: Steffi Martin MD Expected date of discharge: 05/11/17
--- NOTE | 2017-05-11 10:36 | Gastrointestinal Progress Note ---
Assessment and Plan (1) PEG (percutaneous endoscopic gastrostomy) status Status: Acute Assessment and plan: 05/11-Tolerating tube feedings, for discharge to [facility]. Tentative plan to return in 1-2 weeks for PEG placement. Plan and addendum to follow by Dr Brown. 05/10-Post op day 6, post extubation. TPN stopped. Tolerating tube feedings via NG. Plan and addendum to follow by Dr Brown. 05/07-Post op day 3, no changes at present time. Plan and addendum to follow by Dr Brown. 05/06-postop day 2 exploratory lap. All pressure support. Continuing weaning trials. Plan an addendum to follow Dr. Brown. 05/05-findings noted as below. Postop day 1. Continue IV antibiotics. Continue to monitor at present time. Plan an addendum to follow Dr. Brown. 05/04-Admitted with sepsis, post PEG tube replacement on yesterday. Findings of fluroscopy of PEG not projecting into stomach, free spillage of contrast into peritoneal cavity. Tube feedings held. Plan and addendum to follow by Dr Brown. Current Visit: No Gastroenterology - PN: Subj Interval history: CC: Peritonitis Pt is seen with eyes open, nonresponsive to commands. She has had an uneventful night. She is tolerating her tube feedings at present. It is noted pt is to be discharged today to [facility] for further care. Discussion with LAURA Can , and plan is for patient to return in 1-2 weeks to have PEG tube placed at that time. Abdomen is soft, bowel sounds noted. ROS: No acute distress Exam (Progress Note) - Constitutional Vitals: Period Temp Pulse Resp BP Sys/Yousif Pulse Ox Last 24 Hr 97.3 F-98.1 F 84-109 18-22 115-149/50-75 94-100 - Other Additional findings: General appearance: normal weight, no acute distress - Head Head exam: Present: normal inspection, normocephalic - Eye Eye exam: Present: other (lids and conjunctiva unremarkable). Absent: scleral icterus - ENT ENT exam: Present: normal exam, normal oropharynx - Neck Neck exam: Present: normal inspection - Respiratory Respiratory exam: Present: clear to auscultation bilaterally. Absent: rales, rhonchi, wheezes - Cardiovascular Cardiovascular exam: Present: regular rate and rhythm. Absent: diastolic murmur , JVD, systolic murmur - GI/Abdominal GI/Abdominal exam: Present: normal bowel sounds, soft. Absent: ascites, distended, mass, organomegaly, tenderness - Extremities Exam Extremities exam: Present: normal inspection - Back Exam Back exam: Present: normal inspection - Neurological Exam Neurological exam: Present: alert, altered - Psychiatric Psychiatric exam: Present: other - Skin Skin exam: Present: normal color, warm, dry Results - Labs CBC & BMP: 05/11/17 06:00 05/09/17 06:19 Lab Results: I have reviewed the past 24 hour labs
[2017-05-11] MEDS: ENOXAPARIN 30 MG/0.3 ML SYRINGE SUBCUT SCH (11:15)
[2017-05-11 11:41] VITALS: BP 124/57
--- NOTE | 2017-05-11 11:54 | Nephrology Progress Note ---
Nephrology - PN: Subj Interval history: The patient is resting. No acute changes. No fevers or chills. Exam (PN)-Nephrology - Vital Signs Vital signs: Period Temp Pulse Resp BP Sys/Yousif Pulse Ox Last 24 Hr 97.4 F-98.1 F 84-109 18-22 115-149/50-75 94-100 - General Appearance General appearance: fatigue, frail EENT: ATNC (NG tube in place) Neck: supple Respiratory: clear Cardiology: no edema, regular rate Gastrointestinal: normoactive bowel sounds Integumentary: no rash - Lab 05/11/17 06:00 05/09/17 06:19 Most recent lab results ABG pH 7.301 (7.35-7.45) L 05/07/17 11:50 ABG pCO2 33.6 MM HG (35-48) L 05/07/17 11:50 ABG pO2 111.0 MM HG (80-95) H 05/07/17 11:50 ABG HCO3 17.2 MMOL/L (20-26) L 05/07/17 11:50 ABG O2 Saturation 98.0 % (95-100) 05/07/17 11:50 Calcium 8.0 MG/DL (8.5-10.1) L 05/09/17 06:19 Phosphorus 2.1 MG/DL (2.5-4.9) L 05/10/17 05:17 Magnesium 1.9 MG/DL (1.8-2.4) 05/10/17 05:17 Assessment and Plan (1) Hypertension Status: Chronic Current Visit: No Qualifiers: Hypertension type: essential hypertension Qualified Code(s): I10 - Essential (primary) hypertension (2) Diabetes mellitus Status: Chronic Current Visit: No Qualifiers: Diabetes mellitus type: type 2 Chronic kidney disease stage: stage 3 ( moderate) (3) Acute kidney injury Status: Acute Assessment and plan: Acute on chronic kidney disease. Avoid nephrotoxic agents. Continue to follow. Current Visit: Yes
--- NOTE | 2017-05-12 16:01 | Physician Query Form ---
CLICK EDIT DOCUMENT TO SELECT QUERY ANSWER --> OK --> SIGN Dveora Sears RN Clinical Supervisor Telephone Answering Service W) [phone] (f) [phone] [email or web address] PROVIDERS: Make your selection(s) from the choices in EACH section by typing an "x" and enter comments in the comment section. Please use your independent medical judgment in providing your response. This request does not imply that any particular answer is desired or expected. CLINICAL INDICATORS: (Providers should not edit this section) The below diagnosis was documented in the record, but is not consistently noted in subsequent documentation. Diagnosis: Pneumonia Based on documentation of "pneumonia". Pt. treated with IV Gentamycin, Zosyn, and Vancomycin. Please clarify the following: ( ) The above diagnosis was monitored, evaluated, and/or treated and is a confirmed diagnosis ( ) The above diagnosis was ruled out (x ) Other, please specify: if i said there was pneumonia in MY NOTE, then there was pneumonia. If I didnt, then there wasnt. ( ) Clinically unable to determine COMMENTS: PLEASE ALSO DOCUMENT RESPONSE IN PROGRESS NOTES AND/OR DISCHARGE SUMMARY Use of terms such as suspected, likely, or probable (associated with a specific diagnosis that is being evaluated, monitored, or treated as if it exists) are acceptable and can be restated in the discharge summary if not ruled out. MTDD
== END 2017-05-11 15:50 | DRG 326 ==
LOC: EDBD → EDUNIT# → N.ED 21:54 → SUATTDRO 05-04 01:16 → N.EDINP 05-04 01:16 → N.2E 05-04 01:48 → N.CC 05-04 03:09 → N.3E 05-08 15:43
PROVIDERS: ADMIT Internal Medicine Infectious Disease; ATTEND Internal Medicine